=== PATIENT | female | born 1955 | race Caucasian/White ===

== ENCOUNTER 2018-09-28 12:13 | Inpatient (IN) ==
[2018-09-28] MEDS ORDERED: Isovue-370 500 ML BOTTLE IVP ONE (12:44)
--- NOTE | 2018-09-28 12:45 | Emergency Department Note ---
Disposition Clinical Impression: Cellulitis of right lower extremity, STEPHANIA (acute kidney injury) Vomiting Qualifiers: Vomiting type: unspecified Vomiting Intractability: unspecified Nausea presence: with nausea Qualified Code(s): R11.2 - Nausea with vomiting, unspecified Diarrhea Qualifiers: Diarrhea type: unspecified type Qualified Code(s): R19.7 - Diarrhea, unspecified Sepsis Qualifiers: Sepsis type: sepsis due to unspecified organism Qualified Code(s): A41.9 - Sepsis, unspecified organism Osteomyelitis Qualifiers: Osteomyelitis type: unspecified type Osteomyelitis location: foot Laterality: right Qualified Code(s): M86.9 - Osteomyelitis, unspecified Disposition: Admitted As Inpatient Condition: Undetermined Referrals: NONE,PCP [Primary Care Provider] - Forms: ED Satisfaction Letter Time of Disposition: 17:07 General Adult HPI - General Chief complaint: ED Nausea/Vomiting/Diarrhea Stated complaint: vomiting Time Seen by Provider: 09/28/18 12:19 Source: family Limitations: no limitations - History of Present Illness HPI Narrative: 63 year old female with a past medical history of diabetes mellitus who presents with nausea, vomiting, and diarrhea that began last night. Patient states that she has was feeling well yesterday and then developed symptoms when she went to bed. She denies hematemesis and bloody stools. Patient also presents with increased erythema and warmth to the right lower extremity extending from the medial calf into the medial thigh. She reports a history of cellulitis in the past and is unsure of when this current erythema began to get worse. Patient denies recent antibiotics for treatment of a cellulitis. Per son at bedside, she is very sedentary at home. He states that her blood sugar just prior to arrival was 242. No known fever at home. Pain Scale: 0 - Related Data Home Medications Medication Instructions Recorded Confirmed Carvedilol [Coreg] 6.25 mg PO BIDWM 09/28/18 09/28/18 FLUoxetine HCl [Fluoxetine HCl] 10 mg PO DAILY 09/28/18 09/28/18 Insulin ASPART [NovoLOG] 40 units SQ TID 09/28/18 09/28/18 Insulin Glargine [Lantus] 55 unit SQ BID 09/28/18 09/28/18 Quinapril HCl 40 mg PO DAILY 09/28/18 09/28/18 Simvastatin [Zocor] 20 mg PO DAILY 09/28/18 09/28/18 metFORMIN [Glucophage] 1,000 mg PO BIDWM 09/28/18 09/28/18 Allergies Allergy/AdvReac Type Severity Reaction Status Date / Time codeine AdvReac Hives Verified 09/28/18 12:17 All systems ED: reviewed and negative except as stated. Review of Systems: As Per HPI Constitutional: Reports: chills. Denies: fever Cardiovascular: Denies: chest pain, palpitations Respiratory: Denies: cough, dyspnea Gastrointestinal: Reports: nausea, vomiting, diarrhea. Denies: abdominal pain Genitourinary: Denies: dysuria, hematuria Integumentary: Reports: other (cellulitis) Neurological: Denies: headache, weakness, numbness Past Medical History - Past Medical History Attestation: Yes The following information was validated with the patient. Source: patient Medical history: Reports: diabetes, hyperlipidemia, hypertension Psychiatric history: Reports: no psych history - Social History Smoking Status: Never smoker Smokeless Tobacco Status: No Alcohol use: Reports: none Drug use: Reports: none Physical Exam - General Limitations: no limitations General appearance: anxious - Head Head exam: atraumatic, normocephalic - Eye Eye exam: Present: normal appearance, EOMI - ENT ENT exam: mucous membranes moist - Neck Neck exam: Present: normal inspection, trachea midline - Chest Chest inspection: Present: normal inspection, symmetric chest wall rise - Respiratory Respiratory exam: Present: normal lung sounds bilaterally. Absent: respiratory distress, wheezes - Cardiovascular Cardiovascular exam: Present: regular rate, normal rhythm, normal heart sounds - Abdominal Exam Abdominal exam: Present: soft, Non-Tender. Absent: distention - Extremities Exam Extremities exam: Present: other (Patient has significant right lower extremity swelling with blanching erythema of the smith extending to the right medial leg up into the right medial thigh. She has bilateral chronic venous stasis changes. Her right second toe in the inferior portion has a necrotic appearing area with erythema of the entire toe) - Neurological Exam Neurological exam: Present: alert, oriented X3 - Psychiatric Psychiatric exam: Present: normal affect, normal mood, flat affect - Skin Skin exam: Present: warm, dry Course Vital Signs Temperature 99.5 F 09/28/18 12:14 Pulse Rate 89 09/28/18 12:14 Respiratory Rate 20 09/28/18 12:14 Blood Pressure 153/84 09/28/18 12:14 O2 Sat by Pulse Oximetry 94 09/28/18 12:14 Temperature 101.9 F H 09/28/18 15:54 Pulse Rate 85 09/28/18 15:54 Respiratory Rate 20 09/28/18 15:54 Blood Pressure 159/70 09/28/18 15:54 O2 Sat by Pulse Oximetry 93 09/28/18 15:54 Oxygen Delivery Oxygen Delivery Room Air Medical Decision Making - MDM Narrative Medical decision making narrative: Patient is afebrile, vitals within normal limits. She does have significant right lower extremity swelling. She also has chronic venous stasis changes bilaterally. Right lower extremity also has blanching erythema to the right smith extending to the right medial smith extending up to the right medial thigh. She also has an area to the inferior portion of the second digit that appears to be erythematous and slight area of necrosis with erythema of the entire second digit. There is a concern for cellulitis and infection. We will obtain CT with IV contrast of the right foot. We will obtain ultrasound of the right lower extremity to rule out DVT. She will also obtain CBC, BMP, lactate, blood cultures as well. 13:00 Patient has an elevated temperature so we will give a liter of IV fluids and Tylenol. Patient meets SIRS with fever and leukocytosis at this time. We will give her 2 L. The patient is significantly obese and 30 mL/kg bolus is 4 L of fluids. Do not want to fluid overload the patient. Source of infection is cellulitis. She also has vomiting and diarrhea and likely has a viral gastroenteritis as well. We will start IV vancomycin and Zosyn which have been ordered. 13:40 Preliminary right lower extremity Doppler ultrasound is negative for DVT per US tech. 16:45 CT results reviewed shows questionable erosion at the 2nd distal phalanx with osteomyelitis not excluded. Recommending MRI. Podiatry paged. Patient also has cellulitis, no fluid collection or deep soft tissue ulceration identified. 17:00 Discussed with Podiatry, Dr. Morfin, consult placed. Hospitalist paged for admission. 17:[address] Dow who accepts admission. - Medical Records Medical records reviewed: Yes I reviewed the patient's medical records. - Lab Data Lab results reviewed: Yes I reviewed the patient's lab results. Result diagrams: 09/28/18 12:45 09/28/18 12:45 Lab Results 09/28/18 09/28/18 09/28/18 Range/Units 12:45 12:45 12:45 WBC 13.8 H (4.3-11.1) K/mcL RBC 3.90 (3.82-4.97) M/mcL Hgb 13.1 (11.5-15.4) g/dL Hct 39.2 (35.3-44.9) % MCV 100.5 H (83.0-100.0) fL MCH 33.6 H (28.0-33.3) pg MCHC 33.4 (31.6-35.5) g/dL RDW 12.9 (11.5-14.5) % Plt Count 230 (140-400) K/mcL MPV 10.9 (9.4-12.4) fL Immature Gran % 1.2 (0-4) % Seg Neutrophils % 84.7 % Lymphocytes % 10.3 % Monocytes % 3.3 % Eosinophils % 0.3 % Basophils % 0.2 % Neutrophils # 11.7 H (1.6-8.9) K/mcL Lymphocytes # 1.4 (0.6-4.6) K/mcL Monocytes # 0.5 (0.0-1.3) K/mcL Eosinophils # 0.0 (0.0-0.6) K/mcL Basophils # 0.0 (0.0-0.2) K/mcL Sodium 137 (136-145) mEq/L Potassium 4.4 (3.5-5.1) mEq/L Chloride 106 (98-107) mEq/L Carbon Dioxide 20 L (23-29) mEq/L BUN 24 H (8-23) mg/dL Creatinine 1.41 H (0.60-1.20) mg/dL Est GFR ( Amer) 46 L (> 60) Est GFR (Non-Af Amer) 38 L (> 60) BUN/Creatinine Ratio 17 (6-26) Glucose 269 H (70-105) mg/dL Calculated Osmolality 298 (280-300) Lactic Acid 2.1 (0.5-2.2) mmol/L Calcium 9.2 (8.6-10.3) mg/dL Total Bilirubin 0.5 (0.3-1.0) mg/dL Direct Bilirubin 0.1 (0.0-0.2) mg/dL Indirect Bilirubin 0.4 (0.0-1.2) mg/dL AST 10 L (13-39) Units/L ALT 12 (7-52) Units/L Alkaline Phosphatase 98 (34-104) Units/L Serum Total Protein 7.0 (6.4-8.9) g/dL Albumin 3.8 (3.5-5.7) g/dL Globulin 3.2 (2.4-3.5) g/dL Albumin/Globulin Ratio 1.2 (1.1-2.2) Lipase 9 L (11-82) Units/L - Radiology Data Radiology results reviewed: Yes I reviewed the patient's radiology results. Foot CT 09/28/18 13:22 IMPRESSION: 1. Questionable erosion at the tip of the 2nd distal phalanx with osteomyelitis not excluded. If clinically indicated further evaluation could be obtained with MRI. 2. Diffuse subcutaneous edema compatible with cellulitis versus sterile edema. No drainable fluid collection or deep soft tissue ulceration identified. D/ / Tyrel Deluca MD / Tyrel Deluca MD Interpreting Provider: Tyrel Deluca MD - EKG Data EKG #1 EKG attestation: Yes I reviewed and interpreted this EKG. EKG results narrative: EKG obtained at 1238 shows sinus rhythm with heart rate 86, NV interval 175, QRS holiness 126, QTc 4:30, much artifact, no ST elevation, no ST depression. Attestation Statement - Attestation Attestation: Patient was seen with resident physician. I reviewed the history, physical, assessment and plan, and agree with the findings. I also personally evaluated this patient and had [id number] time with this patient. 63-year-old female presents to the emergency department with chief complaint of nausea and vomiting and increased pain and swelling of the right lower extremity. Patient states symptoms have been ongoing for the last week or so progressively getting worse. She has been treated intermittently with antibiotics for her cellulitis in the lower extremities bilaterally right worse than left. She denies chest pain or abdominal pain at this time. Review of systems as above remainder negative. Physical exam vital signs patient's febrile temperature 102. Blood pressure and pulse are stable. ENT is unremarkable. Heart regular rhythm and rate. Lungs clear. Abdomen is soft obese nontender. Extremities cellulitis appears to be extending from the anterior tibial area of the posterior thigh on the right lower extremity. Additionally she has her second toe with a lesion on it appears that she has had ulceration there and possible infection as well. Neurologically alert and oriented. Skin cellulitic rashes noted in the right lower extremity. No other rashes seen. Psych normal. ED course. Patient was seen and evaluated. She was started on IV antibiotics. CT scan and ultrasound the lower extremity were ordered to rule out both osteomyelitis as well as DVT. Patient will require admission for IV antibiotics. Blood cultures were also sent. DVT study was negative. CT scan revealed possible osteo-. Patient was started on an antibiotics for osteomyelitis and cellulitis. She also met sepsis criteria. She was given IV hydration. Hemodynamically she did well. We consult to podiatry on the foot. We discussed case with the hospitalist service who agreed to accept the patient for admission. Agree with resident physician assessment and plan. ED procedures. I reviewed the patient's EKG as well as the resident physician interpretation and I agree with the findings.
[2018-09-28 12:59] LABS: Basophils % 0.2 %; Eosinophils % 0.3 %; Hematocrit 39.2 % (35.3-44.9); Hemoglobin 13.1 g/dL (11.5-15.4); Immature Granulocytes % 1.2 % (0-4); Lymphocytes # 1.4 K/mcL (0.6-4.6); Lymphocytes % 10.3 %; Mean Corpuscular HGB Conc 33.4 g/dL (31.6-35.5); Mean Corpuscular Hemoglobin 33.6 pg (28.0-33.3); Mean Corpuscular Volume 100.5 fL (83.0-100.0); Mean Platelet Volume 10.9 fL (9.4-12.4); Monocytes # 0.5 K/mcL (0.0-1.3); Monocytes % 3.3 %; Neutrophils # 11.7 K/mcL (1.6-8.9); Platelet Count 230 K/mcL (140-400); Red Cell Distribution Width 12.9 % (11.5-14.5); Segmented Neutrophils % 84.7 %; White Blood Count 13.8 K/mcL (4.3-11.1)
[2018-09-28] MEDS ORDERED: 0.9 % Sodium Chloride 1,000 ML IVC ONE ×2 (13:09→13:12)
[2018-09-28] MEDS ORDERED: Acetaminophen 325 MG TABLET PO ONE ×2 (13:09→14:58)
[2018-09-28] MEDS ORDERED: Piperacillin/Tazobactam 3.375 GM in 0.9 % Sodium Chloride Mini Bag 100 ML IVPB ONE (13:12)
[2018-09-28] MEDS ORDERED: Ondansetron 4 MG/2 ML VIAL IVP ONE (13:14)
[2018-09-28 13:18] LABS: Albumin 3.8 g/dL (3.5-5.7); Albumin/Globulin Ratio 1.2 (1.1-2.2); Bilirubin,Direct 0.1 mg/dL (0.0-0.2); Bilirubin,Indirect 0.4 mg/dL (0.0-1.2); Bilirubin,Total 0.5 mg/dL (0.3-1.0); Calcium 9.2 mg/dL (8.6-10.3); Globulin 3.2 g/dL (2.4-3.5); Potassium 4.4 mEq/L (3.5-5.1)
[2018-09-28] MEDS ORDERED: Naloxone 0.4 MG/ML INJ IVP PRN (17:27)
[2018-09-28] MEDS ORDERED: Dextrose Gel 15 GM/37.5 ML TUBE PO PRN ×2 (17:31)
[2018-09-28] MEDS ORDERED: D5% in Water 1,000 ML IVC PRN (17:31)
[2018-09-28] MEDS ORDERED: *HR* Dextrose 50 % in Water (Syg) 50 ML SYRINGE IVP PRN (17:31)
--- NOTE | 2018-09-28 17:58 | Internal Med History&Physical ---
Date of Encounter: 09/28/18 Time of Encounter: 17:40 Internal Medicine - H&P: HPI Chief complaint: Nausea, vomiting, right-sided lower extremity swelling and erythema Admitted From: Emergency Dept History of present illness: Ms. De Souza is a 63 year old female patient with a history of diabetes mellitus type 2 who presented to the ER with complaints of nausea and vomiting. Her family also noted that she had developed erythema and swelling involving her right lower extremity yesterday. Patient was noted to be febrile here. She denies any significant pain in her right leg. Patient has had episodes of nausea and vomiting the ER. She received Zofran for it. She denies any chest pain or palpitations. No shortness of breath. According to the ED records, patient also had episodes of diarrhea last night. No recent antibiotic use. Past Med Surg Social Fam HX - Past Medical History Attestation: Yes The following information was validated with the patient. Source: patient Medical history: diabetes, hyperlipidemia, hypertension Psychiatric history: no psych history - Social History Smoking Status: Never smoker Smokeless Tobacco Status: No Alcohol use: none Drug use: none - Additional Family History Additional family history: Family history reviewed and found to be noncontributory at this time Internal Medicine - H&P: Meds Carvedilol [Coreg] 6.25 mg PO BIDWM 09/28/18 [History] FLUoxetine HCl [Fluoxetine HCl] 10 mg PO DAILY 09/28/18 [History] Insulin ASPART [NovoLOG] 40 units SQ TID 09/28/18 [History] Insulin Glargine [Lantus] 55 unit SQ BID 09/28/18 [History] Quinapril HCl 40 mg PO DAILY 09/28/18 [History] Simvastatin [Zocor] 20 mg PO DAILY 09/28/18 [History] metFORMIN [Glucophage] 1,000 mg PO BIDWM 09/28/18 [History] Allergy/AdvReac Type Severity Reaction Status Date / Time codeine AdvReac Hives Verified 09/28/18 12:17 All Systems PM: A 10-system review of systems was performed and is negative for pertinent findings except as documented above in the HPI. - Constitutional Constitutional: malaise, no chills, no fever(s), no night sweats - EENT Eyes: no change in vision, no discharge, no pain, no photophobia Ears: no ear discharge, no ear pain, no tinnitus Nose, mouth and throat: no dysphagia, no nasal discharge, no neck pain, no sore throat - Cardiovascular Cardiovascular ROS IM: no chest pain, no diaphoresis, no dyspnea, no lightheadedness, no palpitations, no syncope - Respiratory Respiratory: no cough, no dyspnea, no wheezing, no excessive phlegm production - Gastrointestinal Gastrointestinal: as per HPI, nausea, vomiting, no abdominal pain, no diarrhea, no hematemesis, no hematochezia, no melena - Genitourinary Genitourinary: no change in urinary stream, no dysuria, no flank pain, no hematuria - Musculoskeletal Musculoskeletal ROS IM: no numbness, no tingling - Integumentary Integumentary IM: erythema, rash, no unusual bruising - Neurological Neurological ROS: no confusion, no convulsions, no focal weakness, no numbness, no tingling, no tremor(s) - Hematologic/Lymphatic Hematologic/Lymphatic: no easy bruising - Constitutional Vitals: Temp Pulse Resp BP Pulse Ox 101.4 F H 86 22 146/76 93 09/28/18 17:40 09/28/18 17:40 09/28/18 17:40 09/28/18 17:40 09/28/18 17:40 Exam: General: Patient is alert, no acute distress, oriented x 3, morbidly obese Head: atraumatic, normocephalic, ENT: Mucous membranes moist Eye: normal appearance, PERRL, no scleral icterus, no conjunctival injection Neck: normal inspection, trachea midline, full ROM, no carotid bruits Chest: normal inspection, symmetric chest rise Respiratory: Good respiratory effort. Normal breath sounds. No wheezing or crackles. Cardiovascular: Regular rate and rhythm. s1 and s2 normal No clicks, rubs, gallops, or murmurs. No pedal edema Abdomen: Abdomen is soft, nontender. Bowel sounds are present Musculoskeletal: Spontaneously moving all extremities Skin: Erythema and swelling involving the right lower extremity. Erythema involving right second toe with a plantar ulcer measuring about 0.5 cm in diameter. Almost looks like a puncture wound. Entire T of the right second toe is swollen and erythematous. Streaking noted up into the t right leg and thigh Neuro: Alert oriented x 3 normal cranial nerves, no focal deficits Psych: Patient's affect is normal Internal Med - H&P Results - Labs CBC & Chem 7: 09/28/18 12:45 09/28/18 12:45 Labs: Short CBC 09/28/18 Range/Units 12:45 WBC 13.8 H (4.3-11.1) K/mcL Hgb 13.1 (11.5-15.4) g/dL Hct 39.2 (35.3-44.9) % Plt Count 230 (140-400) K/mcL Neutrophils # 11.7 H (1.6-8.9) K/mcL BMP 09/28/18 12:45 Sodium 137 Potassium 4.4 Chloride 106 Carbon Dioxide 20 L BUN 24 H Creatinine 1.41 H Glucose 269 H Calcium 9.2 Liver Function 09/28/18 Range/Units 12:45 Total Bilirubin 0.5 (0.3-1.0) mg/dL Direct Bilirubin 0.1 (0.0-0.2) mg/dL AST 10 L (13-39) Units/L ALT 12 (7-52) Units/L Alkaline Phosphatase 98 (34-104) Units/L Albumin 3.8 (3.5-5.7) g/dL - Impressions ITS Impressions Foot CT 09/28/18 13:22 IMPRESSION: 1. Questionable erosion at the tip of the 2nd distal phalanx with osteomyelitis not excluded. If clinically indicated further evaluation could be obtained with MRI. 2. Diffuse subcutaneous edema compatible with cellulitis versus sterile edema. No drainable fluid collection or deep soft tissue ulceration identified. D/ / Tyrel Deluca MD / Tyrel Deluca MD Interpreting Provider: Tyrel Deluca MD - Assessment and Plan (1) Sepsis Current Visit: Yes Status: Suspected Qualifiers: Sepsis type: methicillin resistant Staphylococcus aureus Qualified Code(s): A41.02 - Sepsis due to Methicillin resistant Staphylococcus aureus (2) Cellulitis of right lower extremity Current Visit: Yes Status: Acute (3) Gastroenteritis Current Visit: Yes Status: Acute (4) Diabetes mellitus Current Visit: Yes Status: Acute Qualifiers: Diabetes mellitus type: type 2 Diabetes mellitus terminal manager insulin use: with long-term use Diabetes mellitus complication status: with hyperglycemia Qualified Code(s): E11.65 - Type 2 diabetes mellitus with hyperglycemia; Z79.4 - retirement (current) use of insulin (5) STEPHANIA (acute kidney injury) Current Visit: Yes Status: Acute (6) Osteomyelitis Current Visit: Yes Status: Suspected Qualifiers: Osteomyelitis type: other Osteomyelitis location: foot Laterality: right Qualified Code(s): M86.8X7 - Other osteomyelitis, ankle and foot - Summary of Assessment and Plan Summary of Assessment and Plan: Sepsis due to cellulitis and possible osteomyelitis involving the right lower extremity: Patient was fever with temperature of 102.4, leukocytosis. Lactic acid normal. Patient has severe erythema and swelling involving the right second toe. Concerning for underlying osteomyelitis. Will obtain MRI of the right foot. CT was inconclusive. ESR and CRP are elevated. Will treat with broad-spectrum antibiotics. Podiatry has been consulted. Diabetes mellitus type 2: Monitor blood sugars. Sliding scale insulin. Diabetic diet. Keep nothing by mouth after midnight. Acute kidney injury: Creatinine 1.41. No prior baseline available here. May have underlying chronic kidney disease. Patient received IV fluids in the ER. We will hold off on further IV fluids at this time. Recheck labs in the morning. Morbid obesity with BMI of 51. Possible viral gastroenteritis: Patient had episodes of nausea vomiting and diarrhea. No recent antibiotic use. Abdomen is nontender to examination. If patient continues to have diarrhea, we will check stool for GI panel. Treat symptoms empirically in the meantime. Next High risk for complications given her underlying comorbidities and morbid obesity. DVT prophylaxis with subcutaneous heparin - Time Spent With Patient Total time spent is greater than 50% in coordination of care (as documented) at patient's floor/unit and/or counseling patient:
[2018-09-28] MEDS: Insulin LISPRO 300 UNITS/3 ML VIAL SQ SCH (22:32)
[2018-09-29 01:34] LABS: Acinetobacter baumannii by PCR Not Detected (Not Detect); Enterobacter cloacae Cmplx PCR Not Detected (Not Detect); Enterobacteriaceae by PCR Not Detected (Not Detect); Enterococcus by PCR Not Detected (Not Detect); Escherichia coli by PCR Not Detected (Not Detect); Klebsiella oxytoca by PCR Not Detected (Not Detect); Klebsiella pneumoniae by PCR Not Detected (Not Detect); Proteus by PCR Not Detected (Not Detect); Pseudomonas aeruginosa by PCR Not Detected (Not Detect); Serratia marcescens by PCR Not Detected (Not Detect); Staphylococcus aureus by PCR Not Detected (Not Detect); Staphylococcus by PCR Not Detected (Not Detect); Streptococcus agalactiae(B)PCR Not Detected (Not Detect); Streptococcus by PCR DETECTED (Not Detect); Streptococcus pneumoniae PCR Not Detected (Not Detect); Streptococcus pyogenes (A) PCR Not Detected (Not Detect)
[2018-09-29 01:35] LABS: Candida albicans by PCR Not Detected (Not Detect); Candida glabrata by PCR Not Detected (Not Detect); Candida krusei by PCR Not Detected (Not Detect); Candida parapsilosis by PCR Not Detected (Not Detect); Candida tropicalis by PCR Not Detected (Not Detect)
[2018-09-29] MEDS: Piperacillin/Tazobactam 3.375 GM in 0.9 % Sodium Chloride Mini Bag 100 ML IVPB SCH ×3 (01:54→17:32)
[2018-09-29 06:18] LABS: Basophils % 0.2 %; Eosinophils % 0.2 %; Hematocrit 34.3 % (35.3-44.9); Immature Granulocytes % 0.7 % (0-4); Lymphocytes # 1.9 K/mcL (0.6-4.6); Lymphocytes % 15.2 %; Mean Corpuscular HGB Conc 31.5 g/dL (31.6-35.5); Mean Corpuscular Volume 104.9 fL (83.0-100.0); Mean Platelet Volume 10.8 fL (9.4-12.4); Monocytes # 0.4 K/mcL (0.0-1.3); Monocytes % 3.2 %; Neutrophils # 9.8 K/mcL (1.6-8.9); Platelet Count 196 K/mcL (140-400); Red Blood Count 3.27 M/mcL (3.82-4.97); Red Cell Distribution Width 13.2 % (11.5-14.5); Segmented Neutrophils % 80.5 %; White Blood Count 12.2 K/mcL (4.3-11.1)
[2018-09-29 06:19] LABS: Hemoglobin 10.8 g/dL (11.5-15.4)
[2018-09-29 06:35] LABS: Calcium 8.5 mg/dL (8.6-10.3); Potassium 4.5 mEq/L (3.5-5.1)
[2018-09-29] MEDS: FLUoxetine HCl 10 MG CAPSULE PO SCH (07:59)
[2018-09-29] MEDS: Insulin LISPRO 300 UNITS/3 ML VIAL SQ SCH ×4 (08:01→22:10)
--- NOTE | 2018-09-29 10:17 | Podiatry Consult Note ---
Date of Encounter: 09/29/18 Time of Encounter: 10:15 Assessment and Plan (1) Osteomyelitis Current visit: Yes Status: Suspected Assessment: Right DIPJ #2 with pre-ulcerative callus CT suggestive of erosion of distal tip #2 phalanx and subcutaneous edema WBC 12.2, afebrile today, max temp 102.4 ESR 64, CRP 149 Blood culture returned gram postive cocci x 1, set pending Plan: Bedside debridement completed, see below MRI ordered of right foot to evaluate for OM Continue IV ATB as ordered, currently on vanc and zosyn Local wound care ordered If MR returns OM may consider ID consult as patient may need assisted ATB Will 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 Verbal consent obtained.Sharp surgical excisional debridement of all hyperkeratotic tissue/devitalized tissue DIPJ #2 toe right foot with #15 scalpel blade reveals ulceration measuring 0.5 cm x 0.7 cm x 0.2 cm. no undermining or tunneling noted. No abscess noted. Wound thoroughly irrigated with sterile saline. Dry sterile dressing applied with calcium alginate. Covered with gauze, kerlix, and Medipore. Dressing to be changed daily Qualifiers: Osteomyelitis type: other Osteomyelitis location: foot Laterality: right Qualified Code(s): M86.8X7 - Other osteomyelitis, ankle and foot (2) Cellulitis of right lower extremity Current visit: Yes Status: Acute Assessment: Erythema extending to posterior popliteal area Does not extend past demarcation line Currently on IV zosyn and vanc Positive blood culture x 1, one set pending Currently afebrile, max temp 102.4 Plan: Continue IV atb per primary team May consider ID consult for management History of Present Illness Chief complaint: Toe #2 possible OM, cellutlitis right foot HPI: Ms. De Souza is a 63 year old female who presented to the ER with complaints of nausea and vomiting. Patient is not noted to podiatry group. PMH of DM I, HLD, HTN. Briefly, patient reports about a month ago she began to notice her right foot toe #2 was sore. States has history of cellulitis. Reports began noticing erythema and edema to right lower extremity around that time. States as this was normal for her she began soaking her foot and attempts to improve pain. States she began to have nausea and vomiting this last week which brought her to the ER. Patient reports she has recently moved here from [facility]. States she does not have any primary care physician or label rewinder that she follows with at this time. Again Ms. De Souza is a 63-year-old female who is consulted to podiatry group for right toe #2 pre-ulcerative lesion and right lower extremity cellulitis. WBC 12.2, blood cultures returned gram-positive cocci [address] upon admission showed erosion of tip #2 right foot and subcutaneous edema. ESR 64, CRP 149, afebrile at this time, Max temp 102.4. Discussed with patient bedside debridement of right toe #2, patient agreeable at this time. Denies any fevers, chills, or diarrhea. Reports nausea and vomiting. Denies any calf pain, chest pain, or shortness of breath. Past Med Surg Social Fam HX - Past Medical History Medical history: diabetes, hyperlipidemia, hypertension Psychiatric history: no psych history - Past Surgical History Surgical History: cholecystectomy - Social History Smoking Status: Never smoker Smokeless Tobacco Status: No Alcohol use: none Drug use: none Medications and Allergies Carvedilol [Coreg] 6.25 mg PO BIDWM 09/28/18 [History] FLUoxetine HCl [Fluoxetine HCl] 10 mg PO DAILY 09/28/18 [History] Insulin ASPART [NovoLOG] 40 units SQ TID 09/28/18 [History] Insulin Glargine [Lantus] 55 unit SQ BID 09/28/18 [History] Quinapril HCl 40 mg PO DAILY 09/28/18 [History] Simvastatin [Zocor] 20 mg PO DAILY 09/28/18 [History] metFORMIN [Glucophage] 1,000 mg PO BIDWM 09/28/18 [History] Allergy/AdvReac Type Severity Reaction Status Date / Time codeine AdvReac Hives Verified 09/28/18 12:17 All Systems Reviewed: The remainder of the systems were reviewed and are negative - Constitutional Constitutional: fever(s) - Cardiovascular Cardiovascular: leg edema, pedal edema, no chest pain, no dyspnea - Respiratory Respiratory: no cough, no dyspnea - Musculoskeletal Musculoskeletal: numbness, tingling Physical Exam - Constitutional Vitals: Temp Pulse Resp BP Pulse Ox 99.1 F 72 18 124/69 91 09/29/18 07:30 09/29/18 07:30 09/29/18 07:30 09/29/18 07:30 09/29/18 07:30 Exam: Constitiutional: Alert and oriented x 3. Well nourished. No acute distress noted Vascular: 1/4 DP/PT bilaterally, CFT <3 sec to all digits, warm to warm from tibia to toes RLE, no calf pain with squeeze RLE Neurologic: Diminished sensation to touch, normal plantar response, Dermatologic: Pre-ulcerative callus noted to right DIPJ #2, erythema and edema noted to RLE, peeling of tissue noted right phalanx #2, Musculoskeletal: 3/5 muscle strength and normal tone RLE Results - Labs Result Diagrams: 09/29/18 06:02 09/29/18 06:02 Labs: Abnormal lab results WBC 12.2 K/mcL (4.3-11.1) H 09/29/18 06:02 RBC 3.27 M/mcL (3.82-4.97) L 09/29/18 06:02 Hgb 10.8 g/dL (11.5-15.4) L D 09/29/18 06:02 Hct 34.3 % (35.3-44.9) L 09/29/18 06:02 MCV 104.9 fL (83.0-100.0) H 09/29/18 06:02 MCH 33.6 pg (28.0-33.3) H 09/28/18 12:45 MCHC 31.5 g/dL (31.6-35.5) L 09/29/18 06:02 Neutrophils # 9.8 K/mcL (1.6-8.9) H 09/29/18 06:02 ESR 64 mm/hr (0-15) H 09/28/18 17:32 Chloride 108 mEq/L (98-107) H 09/29/18 06:02 Carbon Dioxide 22 mEq/L (23-29) L 09/29/18 06:02 BUN 32 mg/dL (8-23) H 09/29/18 06:02 Creatinine 1.67 mg/dL (0.60-1.20) H 09/29/18 06:02 Est GFR ( Amer) 38 (> 60) L 09/29/18 06:02 Est GFR (Non-Af Amer) 31 (> 60) L 09/29/18 06:02 Glucose 251 mg/dL (70-105) H 09/29/18 06:02 POC Glucose 260 mg/dL (70-99) H 09/28/18 21:04 Calculated Osmolality 301 (280-300) H 09/29/18 06:02 Calcium 8.5 mg/dL (8.6-10.3) L 09/29/18 06:02 AST 10 Units/L (13-39) L 09/28/18 12:45 C-Reactive Protein 149 mg/L (Less than 10) H 09/28/18 17:32 Lipase 9 Units/L (11-82) L 09/28/18 12:45 Streptococcus sp PCR DETECTED (Not Detect) A 09/28/18 13:25 H & H 09/28/18 09/29/18 Range/Units 12:45 06:02 Hgb 13.1 10.8 L D (11.5-15.4) g/dL Hct 39.2 34.3 L (35.3-44.9) % All other labs normal. - Diagnostic results Ankle/Foot CT: report reviewed Consult Discharge Plan - Plan Referrals: NONE,PCP [Primary Care Provider] -
[2018-09-29 10:40] LABS: Estimated Average Glucose 232 mg/dl
[2018-09-29] MEDS: Ringers Solution, Lactated 1,000 ML IVC SCH (12:13)
--- NOTE | 2018-09-29 16:44 | Internal Med Progress Note ---
Hospitalist Progress Note - Encounter Date of Encounter: 09/29/18 Time of Encounter: 16:43 - Subjective Interval History: Evaluated patient earlier today. She was sitting up in chair. She reports that her right lower extremity pain and was better controlled today. She denied anynew complaints. Was evaluated by podiatry earlier today. She is concerned about an MRI that was ordered. Addressed her concerns. - Exam Vitals: Temp Pulse Resp BP Pulse Ox 98.2 F 68 18 122/65 95 09/29/18 16:18 09/29/18 16:18 09/29/18 16:18 09/29/18 16:18 09/29/18 16:18 Exam: General: Patient is alert, no acute distress, oriented x 3, morbidly obese Respiratory: Good respiratory effort. Normal breath sounds. No wheezing or crackles. Cardiovascular: Regular rate and rhythm. s1 and s2 normal No clicks, rubs, gallops, or murmurs. No pedal edema Abdomen: Abdomen is soft, nontender. Bowel sounds are present Musculoskeletal: Spontaneously moving all extremities Skin: right foot bandaged. Erythema over the right lower extremity is improving. Neuro: Alert oriented x 3 normal cranial nerves, no focal deficits Psych: Patient's affect is normal - Assessment and Plan (1) Sepsis Current Visit: Yes Status: Suspected (2) Cellulitis of right lower extremity Current Visit: Yes Status: Acute (3) Gastroenteritis Current Visit: Yes Status: Acute (4) Diabetes mellitus Current Visit: Yes Status: Acute (5) STEPHANIA (acute kidney injury) Current Visit: Yes Status: Acute (6) Osteomyelitis Current Visit: Yes Status: Suspected DVT Prophylaxis: Placed patient on subcutaneous heparin - Summary of Assessment and Plan Summary of Assessment and Plan: Sepsis due to cellulitis and possible osteomyelitis involving the right lower extremity: Fevers have improved. Continue IV antibiotics. Blood cultures growing possible streptococci. Once organisms finalized, we will consult infectious disease for further antibiotic recommendations. Podiatry consulted. MRI pending. Keep nothing by mouth after midnight for possible surgery. ESR and CRP a severely elevated suggesting possible underlying osteomyelitis. Diabetes mellitus type 2: Blood sugars are elevated today. We will add long- acting insulin. Acute kidney injury: Creatinine continues to rise up. Check urinalysis. Continue IV fluids. Retroperitoneal ultrasound completed. No abnormalities identified. Morbid obesity with BMI of 56 Acute gastroenteritis: Now resolved. Denies any nausea or vomiting today. High risk for complications given her underlying comorbidities and morbid obesity. DVT prophylaxis with subcutaneous heparin - Time Spent with Patient Total time spent is greater than 50% in coordination of care (as documented) at patient's floor/unit and/or counseling patient: Internal Medicine: Result - Labs CBC & Chem 7: 09/29/18 06:02 09/29/18 06:02 Labs: Short CBC 09/29/18 Range/Units 06:02 WBC 12.2 H (4.3-11.1) K/mcL Hgb 10.8 L D (11.5-15.4) g/dL Hct 34.3 L (35.3-44.9) % Plt Count 196 (140-400) K/mcL Neutrophils # 9.8 H (1.6-8.9) K/mcL BMP 09/29/18 06:02 Sodium 138 Potassium 4.5 Chloride 108 H Carbon Dioxide 22 L BUN 32 H Creatinine 1.67 H Glucose 251 H Calcium 8.5 L - Impressions Impressions Retroperitoneum Ultrasound 09/29/18 14:00 IMPRESSION: Unremarkable ultrasound of the kidneys. 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
[2018-09-29 17:20] LABS: Bilirubin,Urine Small (Negative); Blood,Urine Small (Negative); Clarity,Urine Turbid (Clear); Color,Urine Yellow (Yellow); Glucose,Urine (UA) 250 mg/dL (Normal); Ketones,Urine Negative (Negative); Leukocyte Esterase,Urine Small (Negative); Nitrite,Urine Negative (Negative); PH,Urine 5.5 pH Units (5.0-8.0); Protein,Urine >=1000 mg/dL (Neg-Trace); Specific Gravity,Urine 1.029 (1.010-1.025); Urobilinogen,Urine Normal (Normal)
[2018-09-29 17:21] LABS: Hyaline Casts,Urine None Seen per lpf (None-Few); Squamous Epithelial Cell,Urine Many per lpf (None-Few); WBC,Urine TNTC per hpf (0-3)
[2018-09-29 17:44] LABS: Bacteria,Urine Moderate per hpf (None-Few)
[2018-09-29 19:10] LABS: Protein/Creatinine Ratio,Urine 3.73 mg/mg (0.00-0.20); Sodium, Urine 13.2 mEq/L
[2018-09-29] MEDS: *HR* Heparin 5,000 UNIT/ML VIAL SQ SCH (22:10)
[2018-09-30] MEDS: Piperacillin/Tazobactam 3.375 GM in 0.9 % Sodium Chloride Mini Bag 100 ML IVPB SCH ×4 (00:26→23:43)
[2018-09-30] MEDS: Ringers Solution, Lactated 1,000 ML IVC SCH ×2 (00:26→08:11)
[2018-09-30 05:54] LABS: Basophils % 0.3 %; Eosinophils # 0.3 K/mcL (0.0-0.6); Eosinophils % 2.9 %; Hematocrit 31.1 % (35.3-44.9); Hemoglobin 9.9 g/dL (11.5-15.4); Immature Granulocytes % 0.4 % (0-4); Lymphocytes # 2.4 K/mcL (0.6-4.6); Mean Corpuscular HGB Conc 31.8 g/dL (31.6-35.5); Mean Corpuscular Volume 103.7 fL (83.0-100.0); Mean Platelet Volume 10.9 fL (9.4-12.4); Monocytes # 0.6 K/mcL (0.0-1.3); Monocytes % 5.7 %; Neutrophils # 6.6 K/mcL (1.6-8.9); Platelet Count 168 K/mcL (140-400); Red Cell Distribution Width 13.1 % (11.5-14.5); Segmented Neutrophils % 66.7 %; White Blood Count 9.8 K/mcL (4.3-11.1)
[2018-09-30 06:15] LABS: Calcium 8.5 mg/dL (8.6-10.3); Potassium 4.4 mEq/L (3.5-5.1)
[2018-09-30] MEDS: Insulin LISPRO 300 UNITS/3 ML VIAL SQ SCH ×5 (08:07→21:56)
[2018-09-30] MEDS: FLUoxetine HCl 10 MG CAPSULE PO SCH (08:10)
[2018-09-30] MEDS: *HR* Heparin 5,000 UNIT/ML VIAL SQ SCH ×2 (08:10→17:37)
--- NOTE | 2018-09-30 09:44 | Nephrology Consult Note ---
Date of Encounter: 09/30/18 Time of Encounter: 09:00 Assessment and Plan (1) STEPHANIA (acute kidney injury) Current Visit: Yes Status: Acute Unknown baseline kidney function STEPHANIA possibly on CKD as unsure abotu patients baseline as she has not had bloodwork done for over 4 years. Patient had 2 day history of N/V/D and poor oral intake Is on NATASHA inhibitor as well as metformin Patient's STEPHANIA likely secondary to dehydration and sepsis We will do workup for glomerulonephritis including MONTY, ANCA, Complements C3 and C4, Rheumatoid factor, and Protein electrophoresis Hold any diuretics unless needed for pulmonary function Continue renally protective strategies, avoid nephrotoxic agents, and renally dose medications as appropriate (2) Cellulitis of right lower extremity Current Visit: Yes Status: Acute (3) Gastroenteritis Current Visit: Yes Status: Acute (4) Diabetes mellitus Current Visit: Yes Status: Acute Qualifiers: Diabetes mellitus type: type 2 Diabetes mellitus longterm insulin use: with 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 Diabetes mellitus complication status: with hyperglycemia Qualified Code(s): E11.65 - Type 2 diabetes mellitus with hyperglycemia; Z79.4 - 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 De Souza is a 63 year ld female with PMHx of DM, HTN. She presented to the ED with Complaints of N/V/D that had started approxamately 2 days before she come to the ED. She also had noted increased redness and swelling in her right lower extremity. Kimberley denies any history of CKD, however she has not seen a PCP for 4 years and has not received blood work over that time frame. She states she does take carvedalol, simvastatin, quinapril, fluoxitine, insulin (Novalog and Lantus) as well as metformin. No recent exposure to IV contrast She denies any family history of CKD She will occationally take an ibprophen or two but she says this is rare and only when she gets a headache that she cannot control without medications Patient denies any further nausea, vomiting, diarrhea, abdominal pain, chest pain, shortness of of breath Todays labs show WBC 9.8, HGb 9.9, Hct 31.1, Plt 168, Na 138, K 4.4, Cl 106, BUN 37 increased from 32, Cr 1.78 increased from 1.67, GFR 29 decreased from 31, urine osm 589, Urine Cr 168, Protein/Creatinine ratio 3.73, Urine sodium 13.2, Urine Protein 626 Patient is currently on pipercillin tazobactam and Vancomycin for cellulitis/possible osteomylitis. The right kidney measures 11.8 cm in length and the left kidney measures 12.3 cm in length. Retrperitoneal U/S showed: Kidneys demonstrate normal cortical echogenicity. No evidence of hydronephrosis or intrarenal stones. Kimberley was seen and examined at bedside today, she was n a good mood and said she is feeling much better than what she did previously. She states she has noticed some increased hand swelling and leg swelling over the last few days . Past Med Surg Social Fam HX - Past Medical History Medical history: diabetes, hyperlipidemia, hypertension Psychiatric history: no psych history - Past Surgical History Surgical History: cholecystectomy - Social History Smoking Status: Never smoker Smokeless Tobacco Status: No Alcohol use: none Drug use: none Medications and Allergies Carvedilol [Coreg] 6.25 mg PO BID 09/28/18 [History] FLUoxetine HCl [Fluoxetine HCl] 10 mg PO QAM 09/28/18 [History] Quinapril HCl 40 mg PO DAILY 09/28/18 [History] Simvastatin [Zocor] 20 mg PO HS 09/28/18 [History] Insulin ASPART [Novolog Flexpen] 12 - 16 unit SQ TIDAC 09/29/18 [History] Insulin Glargine,Hum.rec.anlog [Lantus Solostar] 40 unit SQ HS 09/29/18 [History] Insulin Glargine,Hum.rec.anlog [Lantus Solostar] 55 unit SQ QAM 09/29/18 [History] Metformin HCl [Glucophage] 1,000 mg PO BID 09/29/18 [History] Allergy/AdvReac Type Severity Reaction Status Date / Time codeine AdvReac Hives Verified 09/29/18 21:15 Review of Systems Constitutional: no chills, no fatigue, no fever(s) Cardiovascular: edema (increased in hands and legs), no chest pain, no dyspnea Respiratory: no cough, no wheezing Gastrointestinal: as per HPI Genitourinary Female: no urinary frequency, no urinary hesitancy, no urinary urgency Exam - Vital Signs Vital signs: Initial Vital Signs Temp Pulse Resp BP Pulse Ox 99.5 F 89 20 153/84 94 09/28/18 12:14 09/28/18 12:14 09/28/18 12:14 09/28/18 12:14 09/28/18 12:14 Vital Signs - Last 8 Hours Temp Pulse Resp BP Pulse Ox 09/30/18 07:26 97.8 F 62 16 146/74 95 09/30/18 04:25 97.8 F 70 16 150/83 94 Intake and Output 09/29/18 09/30/18 09/30/18 23:59 07:59 15:59 Intake Total 500 / 940 1100 / 2460 1360 / 2460 Output Total 200 / 650 450 / 650 Balance 500 / 740 900 / 1810 910 / 1810 Intake: IV Fluids 100 / 300 1100 / 2100 1000 / 2100 Lactated Ringers 1,000 ML @ 75 1000 / 2000 1000 / 2000 mls/hr IVC .[id number] [facility]ING[facility] Rx#: [id number] Zosyn 3.375 GM In 0.9 % Sodium 100 / 300 100 / 100 Chloride (Mini-Bag +) 100 ML @ 25 mls/hr IVPB Q8HR [facility]ING[facility] Rx#: [id number] Oral 400 / 640 360 / 360 Output: Urine 200 / 650 450 / 650 Other: Meal Breakfast Percent of Meal Consumed 100% Weight 149 kg Blood Glucose* 201 200 Patient Weight 09/30/18 23:59 Weight 149 kg - General Appearance General appearance: well-developed, well-nourished, appears started age, obese Neck: no JVD, supple Respiratory: clear Cardiology: no murmurs, no rub, no gallops, edema (2+ to knee left leg, 3+ to kn ee right leg, edema bilateral hands) Gastrointestinal: normoactive bowel sounds, no tenderness, no guarding Integumentary: no rash, warm and dry Results - Lab Results 09/30/18 05:35 09/30/18 05:35 Most recent lab results 09/30/18 05:35 Calcium 8.5 L Consult Discharge Plan - Plan Referrals: NONE,PCP [Primary Care Provider] -
--- NOTE | 2018-09-30 12:05 | Podiatry Progress Note ---
Date of Encounter: 09/30/18 Time of Encounter: 12:00 - Assessment and Plan (1) Osteomyelitis Current Visit: Yes Status: Suspected Assessment: Right DIPJ toe #2 with ulceration, limited to skin breakdown CT suggestive of erosion of distal tip #2 phalanx and subcutaneous edema WBC 9.8, improved from yesterday, afebrile today, max temp 102.4 ESR 64, CRP 149, A1C 9.4 Blood culture returned gram postive cocci x 1, set pending No purulent drainage noted, no streaking, no foul odor Minimal erythema noted to digit #2 with flaking skin Plan: MRI ordered of right foot to evaluate for OM, pending ID consulted- appreciate recommendations Local wound care ordered Wound appears stable, does not appear infectious in nature, if no other source of infection may consider surgical intervention Cleansed right toe #2 with 0.9 NS, painted surrounding tissue with betadine, covered ulceration with calcium alginate, 4x4 dry dressing, and kerlix. Secured with medipore tape Qualifiers: Osteomyelitis type: other Osteomyelitis location: foot Laterality: right Qualified Code(s): M86.8X7 - Other osteomyelitis, ankle and foot (2) Cellulitis of right lower extremity Current Visit: Yes Status: Acute Assessment: Erythema extending to posterior popliteal area Does not extend past demarcation line Currently on IV zosyn and vanc Positive blood culture x 1, one set pending Currently afebrile, max temp 102.4 Plan: Continue IV atb per ID recommendations Objective - Vital Signs Vital Signs: Vital Signs Temp Pulse Resp BP Pulse Ox 09/30/18 11:20 97.6 F 100 16 153/96 90 09/30/18 07:26 97.8 F 62 16 146/74 95 09/30/18 04:25 97.8 F 70 16 150/83 94 09/30/18 00:00 97.4 F L 68 17 156/90 93 09/29/18 19:25 98 F 64 16 113/76 96 09/29/18 16:18 98.2 F 68 18 122/65 95 Intake and Output 09/29/18 09/30/18 09/30/18 23:59 07:59 15:59 Intake Total 500 / 940 1100 / 2460 1360 / 2460 Output Total 200 / 650 450 / 650 Balance 500 / 740 900 / 1810 910 / 1810 Intake: IV Fluids 100 / 300 1100 / 2100 1000 / 2100 Lactated Ringers 1,000 ML @ 75 1000 / 2000 1000 / 2000 mls/hr IVC .[id number] [facility]ING[facility] Rx#: [id number] Zosyn 3.375 GM In 0.9 % Sodium 100 / 300 100 / 100 Chloride (Mini-Bag +) 100 ML @ 25 mls/hr IVPB Q8HR [facility]ING[facility] Rx#: [id number] Oral 400 / 640 360 / 360 Output: Urine 200 / 650 450 / 650 Other: Meal Breakfast Percent of Meal Consumed 100% Weight 149 kg Blood Glucose* 201 200 247 Patient Weight 09/30/18 23:59 Weight 149 kg - Exam Exam: Constitiutional: Alert and oriented x 3. Well nourished. No acute distress noted Vascular: 1/4 DP/PT bilaterally, CFT <3 sec to all digits, warm to warm from tibia to toes RLE, no calf pain with squeeze RLE Neurologic: Diminished sensation to touch, normal plantar response, Dermatologic: Alarcon II ulcer noted to right digit #2, wound bed beefy red, erythema and edema noted to RLE, peeling of tissue noted right phalanx #2, Musculoskeletal: 3/5 muscle strength and normal tone RLE - Lab Result Diagrams: 09/30/18 05:35 09/30/18 05:35 Labs: Abnormal lab results WBC 12.2 K/mcL (4.3-11.1) H 09/29/18 06:02 RBC 3.00 M/mcL (3.82-4.97) L 09/30/18 05:35 Hgb 9.9 g/dL (11.5-15.4) L 09/30/18 05:35 Hct 31.1 % (35.3-44.9) L 09/30/18 05:35 MCV 103.7 fL (83.0-100.0) H 09/30/18 05:35 MCH 33.6 pg (28.0-33.3) H 09/28/18 12:45 MCHC 31.5 g/dL (31.6-35.5) L 09/29/18 06:02 Neutrophils # 9.8 K/mcL (1.6-8.9) H 09/29/18 06:02 ESR 64 mm/hr (0-15) H 09/28/18 17:32 Chloride 108 mEq/L (98-107) H 09/29/18 06:02 Carbon Dioxide 21 mEq/L (23-29) L 09/30/18 05:35 BUN 37 mg/dL (8-23) H 09/30/18 05:35 Creatinine 1.78 mg/dL (0.60-1.20) H 09/30/18 05:35 Est GFR ( Amer) 35 (> 60) L 09/30/18 05:35 Est GFR (Non-Af Amer) 29 (> 60) L 09/30/18 05:35 Glucose 215 mg/dL (70-105) H 09/30/18 05:35 POC Glucose 201 mg/dL (70-99) H 09/29/18 19:28 Hemoglobin A1c 9.7 % (-5.6) H 09/28/18 17:32 Calculated Osmolality 301 (280-300) H 09/30/18 05:35 Calcium 8.5 mg/dL (8.6-10.3) L 09/30/18 05:35 AST 10 Units/L (13-39) L 09/28/18 12:45 C-Reactive Protein 149 mg/L (Less than 10) H 09/28/18 17:32 Lipase 9 Units/L (11-82) L 09/28/18 12:45 Urine Clarity Turbid (Clear) A 09/29/18 17:00 Ur Specific [place] 1.029 (1.010-1.025) H 09/29/18 17:00 Urine Protein >=1000 mg/dL (Neg-Trace) H 09/29/18 17:00 Urine Glucose (UA) 250 mg/dL (Normal) H 09/29/18 17:00 Urine Blood Small (Negative) H 09/29/18 17:00 Urine Bilirubin Small (Negative) H 09/29/18 17:00 Ur Leukocyte Esterase Small (Negative) H 09/29/18 17:00 Urine Microscopic RBC 5-15 per hpf (0-3) H 09/29/18 17:00 Urine Microscopic WBC TNTC per hpf (0-3) H 09/29/18 17:00 Ur Squamous Epith Cells Many per lpf (None-Few) H 09/29/18 17:00 Urine Bacteria Moderate per hpf (None-Few) H 09/29/18 17:00 Ur Culture Indicated? YES (NO) A 09/29/18 17:00 Protein/Creatinin Ratio 3.73 mg/mg (0.00-0.20) H 09/29/18 18:35 Urine Total Protein 626 mg/dL (1-14) H 09/29/18 18:35 Rheumatoid Factor 23 IU/mL (Less than 14) H 09/30/18 11:00 Streptococcus sp PCR DETECTED (Not Detect) A 09/28/18 13:25 Microbiology, Last 48 Hours 09/28/18 13:25 Blood Culture - Preliminary Peripheral Venipuncture Gram Positive Cocci 09/29/18 17:00 Urine Culture - Preliminary Urine,Clean Catch Culture is incubating. 09/28/18 17:32 Blood Culture - Preliminary Peripheral Venipuncture Culture is incubating and being continuously monitored for growth. Final report to follow. Consult Discharge Plan - Plan Referrals: NONE,PCP [Primary Care Provider] -
[2018-09-30 12:06] LABS: Complement C3 204 mg/dL (87-200)
--- NOTE | 2018-09-30 15:29 | Internal Med Progress Note ---
Hospitalist Progress Note - Encounter Date of Encounter: 09/30/18 Time of Encounter: 15:21 - Subjective Interval History: Patient sitting up in chair. Doing well overall. Feels that she is getting better. Tolerating diet well. No nausea or vomiting. Continues to have erythema and swelling in her right foot over the second toe. Erythema over most of her right lower leg improved. - Exam Vitals: Temp Pulse Resp BP Pulse Ox 97.6 F 100 16 153/96 90 09/30/18 11:20 09/30/18 11:20 09/30/18 11:20 09/30/18 11:20 09/30/18 11:20 Exam: General: Patient is alert, no acute distress, oriented x 3, morbidly obese Respiratory: Good respiratory effort. Normal breath sounds. No wheezing or crackles. Cardiovascular: Regular rate and rhythm. s1 and s2 normal No clicks, rubs, gallops, or murmurs. No pedal edema Abdomen: Abdomen is soft, nontender. Bowel sounds are present Musculoskeletal: Spontaneously moving all extremities Skin: right foot bandaged. Erythema over the right lower extremity is improving. Neuro: Alert oriented x 3 normal cranial nerves, no focal deficits Psych: Patient's affect is normal - Assessment and Plan (1) Sepsis Current Visit: Yes Status: Suspected (2) Cellulitis of right lower extremity Current Visit: Yes Status: Acute (3) Gastroenteritis Current Visit: Yes Status: Acute (4) Diabetes mellitus Current Visit: Yes Status: Acute (5) STEPAHNIA (acute kidney injury) Current Visit: Yes Status: Acute (6) Osteomyelitis Current Visit: Yes Status: Suspected DVT Prophylaxis: Placed patient on subcutaneous heparin - Summary of Assessment and Plan Summary of Assessment and Plan: Sepsis due to cellulitis and possible osteomyelitis involving the right lower extremity: Fevers have improved. Continue IV antibiotics. Blood cultures growing possible streptococci. MRI still pending. Podiatry following. Consult infectious disease tomorrow once cultures finalize. Diabetes mellitus type 2: Blood sugars are elevated today. Levemir ordered. Increase sliding scale coverage to high correctional. Acute kidney injury: Consult with nephrology. Creatinine continues to worsen. Continue gentle IV hydration. Morbid obesity with BMI of 56 Acute gastroenteritis: Now resolved. Essential hypertension: Blood pressure has been elevated here. Continue carvedilol. Will add amlodipine. Moderate risk for complications. DVT prophylaxis with subcutaneous heparin - Time Spent with Patient Total time spent is greater than 50% in coordination of care (as documented) at patient's floor/unit and/or counseling patient: Internal Medicine: Result - Labs CBC & Chem 7: 09/30/18 05:35 09/30/18 05:35 Labs: Short CBC 09/30/18 Range/Units 05:35 WBC 9.8 (4.3-11.1) K/mcL Hgb 9.9 L (11.5-15.4) g/dL Hct 31.1 L (35.3-44.9) % Plt Count 168 (140-400) K/mcL Neutrophils # 6.6 (1.6-8.9) K/mcL BMP 09/30/18 05:35 Sodium 138 Potassium 4.4 Chloride 106 Carbon Dioxide 21 L BUN 37 H Creatinine 1.78 H Glucose 215 H Calcium 8.5 L Urine 09/29/18 Range/Units 17:00 Urine Color Yellow (Yellow) Urine Clarity Turbid A (Clear) Urine pH 5.5 (5.0-8.0) pH Units Ur Specific [place] 1.029 H (1.010-1.025) Urine Protein >=1000 H (Neg-Trace) mg/dL Urine Glucose (UA) 250 H (Normal) mg/dL Consult Discharge Plan - Plan Referrals: NONE,PCP [Primary Care Provider] - (1) Sepsis Qualifiers: Sepsis type: Streptococcus, other Qualified Code(s): A40.8 - Other streptococcal sepsis (4) Diabetes mellitus Qualifiers: Diabetes mellitus type: type 2 Diabetes mellitus group home insulin use: with group home use Diabetes mellitus complication status: with hyperglycemia Qualified Code(s): E11.65 - Type 2 diabetes mellitus with hyperglycemia; Z79.4 - intermediate (current) use of insulin (6) Osteomyelitis Qualifiers: Osteomyelitis type: other Osteomyelitis location: foot Laterality: right Qualified Code(s): M86.8X7 - Other osteomyelitis, ankle and foot
[2018-09-30] MEDS ORDERED: Insulin DETEMIR 100 UNIT/ML X5UNITS SQ SCH (21:00)
--- NOTE | 2018-09-30 23:37 | Electrocardiograph Report ---
[facility] Test Date: 2018-09-28 Pat Name: Yasmeen De Souza Department: EXAM12 Room: 2A51 Gender: F Oil [employer]: : [id number] Requested By: Jaymie Arenas Order Number: [id number] Reading MD: Ayush Hull Measurements Intervals [place] Rate: 86 P: 31 SD: 175 QRS: 0 QRSD: 126 T: 68 QT: 359 QTc: 430 Interpretive Statements Sinus rhythm Nonspecific intraventricular conduction delay Borderline T abnormalities, lateral leads Electronically Signed On 09-30-2018 23:35:49 EDT by Ayush Hull
[2018-10-01] MEDS: Ringers Solution, Lactated 1,000 ML IVC SCH (01:45)
[2018-10-01] MEDS: *HR* Heparin 5,000 UNIT/ML VIAL SQ SCH ×2 (05:51→17:34)
[2018-10-01 06:28] LABS: Basophils % 0.4 %; Eosinophils # 0.2 K/mcL (0.0-0.6); Hematocrit 32.2 % (35.3-44.9); Hemoglobin 10.5 g/dL (11.5-15.4); Immature Granulocytes % 0.6 % (0-4); Lymphocytes # 2.2 K/mcL (0.6-4.6); Lymphocytes % 30.6 %; Mean Corpuscular HGB Conc 32.6 g/dL (31.6-35.5); Mean Corpuscular Hemoglobin 33.4 pg (28.0-33.3); Mean Corpuscular Volume 102.5 fL (83.0-100.0); Monocytes # 0.5 K/mcL (0.0-1.3); Monocytes % 7.1 %; Neutrophils # 4.1 K/mcL (1.6-8.9); Platelet Count 202 K/mcL (140-400); Red Blood Count 3.14 M/mcL (3.82-4.97); Red Cell Distribution Width 12.8 % (11.5-14.5); Segmented Neutrophils % 58.3 %; White Blood Count 7.1 K/mcL (4.3-11.1)
[2018-10-01 06:47] LABS: Potassium 4.6 mEq/L (3.5-5.1)
[2018-10-01] MEDS ORDERED: Aminoglycoside Consult 1 EACH MC ONE (08:00)
[2018-10-01] MEDS: FLUoxetine HCl 10 MG CAPSULE PO SCH (08:31)
[2018-10-01] MEDS: Insulin LISPRO 300 UNITS/3 ML VIAL SQ SCH ×7 (08:32→23:09)
[2018-10-01] MEDS: Piperacillin/Tazobactam 3.375 GM in 0.9 % Sodium Chloride Mini Bag 100 ML IVPB SCH (08:33)
[2018-10-01] MEDS ORDERED: amLODIPine 5 MG TABLET PO SCH (09:00)
--- NOTE | 2018-10-01 09:53 | Podiatry Progress Note ---
Date of Encounter: 10/01/18 Time of Encounter: 09:49 - Assessment and Plan (1) Osteomyelitis Current Visit: Yes Status: Suspected Assessment: Right DIPJ toe #2 with ulceration, limited to skin breakdown CT suggestive of erosion of distal tip #2 phalanx and subcutaneous edema MR suggestive of OM WBC 7.1, improved from yesterday, afebrile today, max temp 102.4 ESR 64, CRP 149, A1C 9.4 Blood culture returned gram postive cocci x 1, set pending No purulent drainage noted, no streaking, no foul odor Minimal erythema noted to digit #2 with flaking skin Plan: Plan for OR tomorrow for distal phalangectomy NPO after MN Recommend ID consult as patient will most likely need ATB crystal gazer- appreciate recommendations Local wound care ordered Cleansed right toe #2 with 0.9 NS, painted surrounding tissue with betadine, covered ulceration with calcium alginate, 4x4 dry dressing, and kerlix. Secured with medipore tape Impression: MR/MR foot RT wo con IMPRESSION: 1. Findings compatible with osteomyelitis throughout the 2nd distal phalanx. 2. Suspected deep soft tissue ulceration at the distal aspect of the 2nd digit. 3. Diffuse subcutaneous edema compatible with cellulitis. No well-defined drainable fluid collection. D/ / Tyrel Deluca MD / Tyrel Deluca MD Interpreting Provider: Tyrel Deluca MD Qualifiers: Osteomyelitis type: other Osteomyelitis location: foot Laterality: right Qualified Code(s): M86.8X7 - Other osteomyelitis, ankle and foot (2) Cellulitis of right lower extremity Current Visit: Yes Status: Acute Assessment: Erythema extending to posterior popliteal area Does not extend past demarcation line Currently on IV zosyn and vanc Positive blood culture x 1, one set pending Currently afebrile, max temp 102.4 Plan: Continue IV atb Subjective Principal diagnosis: OM Interval history: Patient awake sitting in chair. Denies any fevers, chills, nausea, vomiting, or diarrhea. Denies any calf pain, chest pain, or shortness of breath. Reports spoke with and she is going home soon. Discussed with patient need for surgical intervention d/t OM of righ toe #2, patient tearful but agreeable. States she will discuss with son and surgeon when he stops by. No other questions or concerns at this time. Objective - Vital Signs Vital Signs: Vital Signs Temp Pulse Resp BP Pulse Ox 10/01/18 07:42 97.5 F L 59 20 175/91 96 10/01/18 03:42 97.9 F 59 14 149/70 97 10/01/18 01:05 97.5 F L 60 16 169/76 97 09/30/18 19:59 98 09/30/18 19:08 97.7 F 76 16 111/61 98 09/30/18 16:00 97.7 F 60 16 151/81 98 09/30/18 11:20 97.6 F 100 16 153/96 90 Intake and Output 09/30/18 10/01/18 10/01/18 23:59 07:59 15:59 Intake Total 1590 / 4510 100 / 460 360 / 460 Output Total 650 / 1600 500 / 500 Balance 940 / 2910 -400 / -40 360 / -40 Intake: IV Fluids 1350 / 3550 100 / 100 Lactated Ringers 1,000 ML @ 75 1000 / 3000 mls/hr IVC .[id number] [facility] Rx#: [id number] Zosyn 3.375 GM In 0.9 % Sodium 100 / 300 100 / 100 Chloride (Mini-Bag +) 100 ML @ 25 mls/hr IVPB Q8HR [facility] Rx#: [id number] Vancocin 1,500 MG In 0.9 % 250 / 250 Sodium Chloride 250 ML @ 166.67 mls/hr IVPB Q24H [facility] Rx#: [id number] Oral 240 / 960 360 / 360 Output: Urine 650 / 1600 500 / 500 Other: Meal Dinner Breakfast Percent of Meal Consumed 100% 100% Stool Size Small Stool Consistency soft Stool Characteristics Normal for Patient Stool Color Brown Weight 152.9 kg Blood Glucose* 220 179 Patient Weight 10/01/18 23:59 Weight 152.9 kg - Exam Exam: Constitiutional: Alert and oriented x 3. Well nourished. No acute distress noted Vascular: 1/4 DP/PT bilaterally, CFT <3 sec to all digits, warm to warm from tibia to toes RLE, no calf pain with squeeze RLE Neurologic: Diminished sensation to touch, normal plantar response, Dermatologic: Alarcon III ulcer noted to right digit #2, wound bed beefy red, erythema and edema noted to RLE, peeling of tissue noted right phalanx #2, Musculoskeletal: 3/5 muscle strength and normal tone RLE - Lab Result Diagrams: 10/01/18 06:05 10/01/18 06:05 Labs: Abnormal lab results WBC 12.2 K/mcL (4.3-11.1) H 09/29/18 06:02 RBC 3.14 M/mcL (3.82-4.97) L 10/01/18 06:05 Hgb 10.5 g/dL (11.5-15.4) L 10/01/18 06:05 Hct 32.2 % (35.3-44.9) L 10/01/18 06:05 MCV 102.5 fL (83.0-100.0) H 10/01/18 06:05 MCH 33.4 pg (28.0-33.3) H 10/01/18 06:05 MCHC 31.5 g/dL (31.6-35.5) L 09/29/18 06:02 Neutrophils # 9.8 K/mcL (1.6-8.9) H 09/29/18 06:02 ESR 64 mm/hr (0-15) H 09/28/18 17:32 Chloride 108 mEq/L (98-107) H 09/29/18 06:02 Carbon Dioxide 22 mEq/L (23-29) L 10/01/18 06:05 BUN 34 mg/dL (8-23) H 10/01/18 06:05 Creatinine 1.60 mg/dL (0.60-1.20) H 10/01/18 06:05 Est GFR ( Amer) 40 (> 60) L 10/01/18 06:05 Est GFR (Non-Af Amer) 33 (> 60) L 10/01/18 06:05 Glucose 197 mg/dL (70-105) H 10/01/18 06:05 POC Glucose 285 mg/dL (70-99) H 09/30/18 15:58 Hemoglobin A1c 9.7 % (-5.6) H 09/28/18 17:32 Calculated Osmolality 301 (280-300) H 09/30/18 05:35 Calcium 8.5 mg/dL (8.6-10.3) L 09/30/18 05:35 AST 10 Units/L (13-39) L 09/28/18 12:45 C-Reactive Protein 149 mg/L (Less than 10) H 09/28/18 17:32 Lipase 9 Units/L (11-82) L 09/28/18 12:45 Urine Clarity Turbid (Clear) A 09/29/18 17:00 Ur Specific [place] 1.029 (1.010-1.025) H 09/29/18 17:00 Urine Protein >=1000 mg/dL (Neg-Trace) H 09/29/18 17:00 Urine Glucose (UA) 250 mg/dL (Normal) H 09/29/18 17:00 Urine Blood Small (Negative) H 09/29/18 17:00 Urine Bilirubin Small (Negative) H 09/29/18 17:00 Ur Leukocyte Esterase Small (Negative) H 09/29/18 17:00 Urine Microscopic RBC 5-15 per hpf (0-3) H 09/29/18 17:00 Urine Microscopic WBC TNTC per hpf (0-3) H 09/29/18 17:00 Ur Squamous Epith Cells Many per lpf (None-Few) H 09/29/18 17:00 Urine Bacteria Moderate per hpf (None-Few) H 09/29/18 17:00 Ur Culture Indicated? YES (NO) A 09/29/18 17:00 Protein/Creatinin Ratio 3.73 mg/mg (0.00-0.20) H 09/29/18 18:35 Urine Total Protein 626 mg/dL (1-14) H 09/29/18 18:35 Vancomycin Trough 18 mcg/mL (5-10) H 09/30/18 17:26 Rheumatoid Factor 23 IU/mL (Less than 14) H 09/30/18 11:00 Complement C3 204 mg/dL (87-200) H 09/30/18 11:00 Complement C4 62 mg/dL (19-52) H 09/30/18 11:00 Streptococcus sp PCR DETECTED (Not Detect) A 09/28/18 13:25 Microbiology, Last 48 Hours 09/28/18 13:25 Blood Culture - Final Peripheral Venipuncture Str. dysgalactiae equisimilis 09/29/18 17:00 Urine Culture - Final Urine,Clean Catch No growth. Consult Discharge Plan - Plan Referrals: NONE,PCP [Primary Care Provider] -
--- NOTE | 2018-10-01 11:39 | Nephrology Progress Note ---
Date of Encounter: 10/01/18 Time of Encounter: 11:35 - Assessment and Plan (1) STEPHANIA (acute kidney injury) Current Visit: Yes Status: Acute Patient's renal function is likely to baseline based off the creatinine being relatively stable last few days. While we do not have data for several years her uncontrolled diabetes could easily have led to a decline in her renal function during that time period. At this time I recommend continuing with current therapies minimize the patient's exposure to nephrotoxic agents. Adjust medications for renal function . The patient will need a follow-up in nephrology clinic 4 to 8 weeks after discharge with a renal function panel 1-2 weeks prior to the clinic visit. Since her renal function seems to be overall stable we will sign off. Thank you for the consult. Please feel free to re-consult if you have any questions or concerns. (2) Cellulitis of right lower extremity Current Visit: Yes Status: Acute (3) Diabetes mellitus Current Visit: Yes Status: Acute Qualifiers: Diabetes mellitus type: type 2 Diabetes mellitus supervisor intermediates insulin use: with assisted use Diabetes mellitus complication status: with hyperglycemia Qualified Code(s): E11.65 - Type 2 diabetes mellitus with hyperglycemia; Z79.4 - [facility] (current) use of insulin (4) Osteomyelitis Current Visit: Yes Status: Suspected Qualifiers: Osteomyelitis type: other Osteomyelitis location: foot Laterality: right Qualified Code(s): M86.8X7 - Other osteomyelitis, ankle and foot Subjective Principal diagnosis: OM Interval history: Patient seen. She has no new complaint. ROS is overall stable. Objective - Vital Signs Vital signs: Vital Signs Temp Pulse Resp BP Pulse Ox 10/01/18 07:42 97.5 F L 59 20 175/91 96 10/01/18 03:42 97.9 F 59 14 149/70 97 10/01/18 01:05 97.5 F L 60 16 169/76 97 09/30/18 19:59 98 09/30/18 19:08 97.7 F 76 16 111/61 98 09/30/18 16:00 97.7 F 60 16 151/81 98 Intake and Output 09/30/18 10/01/18 10/01/18 23:59 07:59 15:59 Intake Total 1590 / 4510 100 / 460 360 / 460 Output Total 650 / 1600 500 / 500 Balance 940 / 2910 -400 / -40 360 / -40 Intake: IV Fluids 1350 / 3550 100 / 100 Lactated Ringers 1,000 ML @ 75 1000 / 3000 mls/hr IVC .[id number] [facility] Rx#: [id number] Zosyn 3.375 GM In 0.9 % Sodium 100 / 300 100 / 100 Chloride (Mini-Bag +) 100 ML @ 25 mls/hr IVPB Q8HR [facility] Rx#: [id number] Vancocin 1,500 MG In 0.9 % 250 / 250 Sodium Chloride 250 ML @ 166.67 mls/hr IVPB Q24H [facility] Rx#: [id number] Oral 240 / 960 360 / 360 Output: Urine 650 / 1600 500 / 500 Other: Meal Dinner Breakfast Percent of Meal Consumed 100% 100% Stool Size Small Stool Consistency soft Stool Characteristics Normal for Patient Stool Color Brown Weight 152.9 kg Blood Glucose* 220 179 Patient Weight 10/01/18 23:59 Weight 152.9 kg - General Appearance General appearance: Present: well-developed, well-nourished EENT: Present: ATNC Neck: Present: supple Cardiology: Present: regular rate Neurologic: Present: alert and oriented x3 Psychiatric: Present: mood/affect appropriate - Lab 10/01/18 06:05 10/01/18 06:05 Most recent lab results 10/01/18 06:05 Calcium 9.0 Consult Discharge Plan - Plan Referrals: NONE,PCP [Primary Care Provider] -
--- NOTE | 2018-10-01 11:52 | Internal Med Progress Note ---
Hospitalist Progress Note - Encounter Date of Encounter: 10/01/18 Time of Encounter: 08:15 - Subjective Interval History: Reports improvement in her R foot discomfort. No fever/chills or N/V - Exam Vitals: Temp Pulse Resp BP Pulse Ox 97.5 F L 59 20 175/91 96 10/01/18 07:42 10/01/18 07:42 10/01/18 07:42 10/01/18 07:42 10/01/18 07:42 Exam: General: Patient is alert, no acute distress, oriented x 3, morbidly obese Respiratory: Good respiratory effort. Normal breath sounds. No wheezing or crackles. Cardiovascular: Regular rate and rhythm. s1 and s2 normal No clicks, rubs, gallops, or murmurs. Abdomen: Abdomen is soft, nontender. Bowel sounds are present Musculoskeletal: Spontaneously moving all extremities Skin: right foot dressing c/d/i with receding erythema over the right smith Neuro: Alert oriented x 3 normal cranial nerves, no focal deficits Psych: Patient's affect is normal - Assessment and Plan (1) Sepsis Current Visit: Yes Status: Acute Assessment and Plan: due to R LE cellulitis. MRI also +ve for R 2nd distal phalanx OM Blood cultures growing possible streptococci in 1 out of 2 sets WBC normal x 2, afebrile > 48 hours. Continue IV vanc/zosyn Appreciate Podiatry input, for possible OR tomorrow will also consult ID for further abx management (2) Osteomyelitis Current Visit: Yes Status: Acute Assessment and Plan: as above for OR by podiatry tomorrow (3) Cellulitis of right lower extremity Current Visit: Yes Status: Acute Assessment and Plan: improving on broad spectrum abx, continue (4) STEPHANIA (acute kidney injury) Current Visit: Yes Status: Acute Assessment and Plan: suspect a component of CKD Cr stable around 1.6 US retroperitoneum unremarkable appreciate nephrology input, for follow up in 4-8 weeks renally dosed abx (5) Morbid obesity with BMI of 50.0-59.9, adult Current Visit: Yes Status: Chronic Assessment and Plan: lifestyle modifications emphasized (6) Diabetes mellitus Current Visit: Yes Status: Chronic Assessment and Plan: increase levemir to 15U BID continue high dose sliding scale with prandial lispro (7) HTN (hypertension) Current Visit: Yes Status: Chronic Assessment and Plan: continue coreg norvasc added, will uptitrate to 10mg DVT Prophylaxis: SQ heparin - Time Spent with Patient Total time spent is greater than 50% in coordination of care (as documented) at patient's floor/unit and/or counseling patient: 25 - 35 minutes Plan of Care Discussed with: patient (discussed with ID as well) Internal Medicine: Result - Labs CBC & Chem 7: 10/01/18 06:05 10/01/18 06:05 Labs: Short CBC 10/01/18 Range/Units 06:05 WBC 7.1 (4.3-11.1) K/mcL Hgb 10.5 L (11.5-15.4) g/dL Hct 32.2 L (35.3-44.9) % Plt Count 202 (140-400) K/mcL Neutrophils # 4.1 (1.6-8.9) K/mcL BMP 10/01/18 06:05 Sodium 138 Potassium 4.6 Chloride 107 Carbon Dioxide 22 L BUN 34 H Creatinine 1.60 H Glucose 197 H Calcium 9.0 - Impressions Impressions Foot MRI 09/29/18 10:30 IMPRESSION: 1. Findings compatible with osteomyelitis throughout the 2nd distal phalanx. 2. Suspected deep soft tissue ulceration at the distal aspect of the 2nd digit. 3. Diffuse subcutaneous edema compatible with cellulitis. No well-defined drainable fluid collection. D/ / Tyrel Deluca MD / Tyrel Deluca MD Interpreting Provider: Tyrel Deluca MD Consult Discharge Plan - Plan Referrals: NONE,PCP [Primary Care Provider] - (1) Sepsis Qualifiers: Sepsis type: Streptococcus, other Qualified Code(s): A40.8 - Other streptococcal sepsis (2) Osteomyelitis Qualifiers: Osteomyelitis type: unspecified type Osteomyelitis location: foot Laterality: right Qualified Code(s): M86.9 - Osteomyelitis, unspecified (6) Diabetes mellitus Qualifiers: Diabetes mellitus type: type 2 Diabetes mellitus exterminator helper insulin use: with correction use Diabetes mellitus complication status: with hyperglycemia Q ualified Code(s): E11.65 - Type 2 diabetes mellitus with hyperglycemia; Z79.4 - termite treater helper (current) use of insulin (7) HTN (hypertension) Qualifiers: Hypertension type: essential hypertension Qualified Code(s): I10 - Essential (primary) hypertension
--- NOTE | 2018-10-01 12:27 | Infectious Disease Consult ---
Infectious Disease-Consult - Encounter Date/Time Date of Encounter: 10/01/18 - Data of Consult Patient: new to practice Reason for consult: R 2nd toe OM Consult date: 10/01/18 Requesting Physician: Salomon Griffith MD Primary Care Provider: PCP NONE - HPI HPI: Ms. De Souza is a 63-year-old female with past medical history of diabetes, hyper lipidemia, hypertension, and morbid obesity. The patient was admitted to the hospital 09/28/18 for right lower extreme a cellulitis, acute kidney injury, vomiting/diarrhea, sepsis, osteomyelitis. We are consulted 10/01/18 for further workup and treatment recommendations for right foot second toe osteomyelitis. Briefly, the patient is a 63-year-old female with past medical history as stated above. The patient presents emergency department with complaints of nausea, vomiting, and diarrhea on the day of admission. She will increased right lower extremity erythema as well. Upon arrival, she had low-grade temp with a MAXIMUM TEMPERATURE of 99.5. She was otherwise hemodynamically stable. She had leukocytosis with neutrophilic predominance in acute kidney injury. ESR was elevated at 64 with a CRP of 149. LFTs and lipase were normal. She had a venous duplex study of the right lower extremity that was negative for DVT or SVT. She has CT of the right foot showed possible ostial myelitis of the distal second toe phalanx and cellulitis versus sterile edema. Blood cultures were obtained 2 sets. She was started empirically on IV vancomycin and Zosyn and was admitted to the hospital for further evaluation and treatment. Shortly after admission, the patient became febrile with a MAXIMUM TEMPERATURE of 102.4. Podiatry was consulted and she underwent an MRI of the right foot that showed also mellitus of the second distal phalanx and cellulitis. Urinalysis appeared contaminated and the culture was negative. Nephrology was consulted to assist with her acute kidney injury. She underwent a retroperitoneal ultrasound that was negative. No surgical intervention planned at this time. Currently, she is on vancomycin and Zosyn. We have been asked to evaluate and make further recommendations. During my exam today, the patient states that she developed an ulcer and swelling to the right foot second toe about a month ago. She states she has been doctoring at home, but developed redness of her leg about 2 weeks ago. She states she has not been on any antibiotics prior to admission. She reports onset of vomiting and nausea about 2 days prior to admission. States she devel oped chills prior to admission, but denies any known fevers or rigors. Denies headache or neck pain. Denies chest pain, shortness of breath, or cough. States the nausea and vomiting has resolved and her appetite is better. She reported poor by mouth intake prior to admission. Denies urinary complaints including dysuria, urinary frequency, or trouble starting her stream. Denies any back or flank pain. States the pain to the right lower extremity is markedly improved and is minimal this time. Denies oral thrush or skin rashes. She states she monitors her blood sugars at home and states they have been running between 150 and 200. The patient lives at home with her son, [id number], , and grandchild. She does not work outside the home. She denies tobacco, alcohol, or illicit drug use. Denies chronic infectious diseases. States she has some dogs at home, but denies any bites or scratches. Denies any recent travel outside the [facility]. - ROS Review of Systems: All systems reviewed and no additional remarkable complaints except as stated. - Results CBC & Chem 7: 10/02/18 05:51 10/02/18 05:51 - Exam Vitals: Temp Pulse Resp BP Pulse Ox 97.6 F 58 19 155/83 97 10/01/18 11:48 10/01/18 11:48 10/01/18 11:48 10/01/18 11:48 10/01/18 11:48 Exam: Head: Atraumatic, normal inspection, normocephalic. Eye: EOMI, PERRLA, no scleral icterus noted. ENT: Mucous membranes moist. No odontogenic infection noted. Neck: Normal inspection, no meningismus. Respiratory: Clear to auscultation. No rales, respiratory distress, rhonchi, or wheezes noted. Cardiovascular: Regular rate and rhythm, S1 and S2 audible. No murmurs, rubs, or gallops. GI: Soft, nondistended, normal bowel sounds. Extremities: Venous stasis dermatitis noticed the bilateral lower extremities. Right foot dressing clean, dry, and intact. Erythema noted to the right lower extremity that has receded from previous skin markings. Warm to touch and mildly tender. Neurological: Alert, oriented 3, no focal deficits. Psychiatric: normal affect, normal mood. Skin: Dry, intact, warm. Normal color. No rashes. Carvedilol [Coreg] 6.25 mg PO BID 09/28/18 [History] FLUoxetine HCl [Fluoxetine HCl] 10 mg PO QAM 09/28/18 [History] Quinapril HCl 40 mg PO DAILY 09/28/18 [History] Simvastatin [Zocor] 20 mg PO HS 09/28/18 [History] Insulin ASPART [Novolog Flexpen] 12 - 16 unit SQ TIDAC 09/29/18 [History] Insulin Glargine,Hum.rec.anlog [Lantus Solostar] 40 unit SQ HS 09/29/18 [History] Insulin Glargine,Hum.rec.anlog [Lantus Solostar] 55 unit SQ QAM 09/29/18 [History] Metformin HCl [Glucophage] 1,000 mg PO BID 09/29/18 [History] cefTRIAXone [Rocephin] 2,000 mg IVPB DAILY #42 vial 10/02/18 [Rx] Allergy/AdvReac Type Severity Reaction Status Date / Time codeine AdvReac Hives Verified 09/29/18 21:15 - Assessment and Plan (1) Sepsis Current Visit: Yes Status: Acute The patient had 2 sepsis criteria with acute kidney injury on admission. Likely secondary to right foot cellulitis and osteomyelitis. Improved. Leukocytosis resolved. Afebrile overnight. Blood cultures on 09/28/18 are +1 out of 2 sets for S. dysgalactiae. Qualifiers: Sepsis type: sepsis due to unspecified organism Qualified Code(s): A41.9 - Sepsis, unspecified organism SNOMED Code(s): 96714770 (2) Bacteremia Current Visit: Yes Status: Acute Blood cultures on 09/28/18 are +1 out of 2 sets for S. dysgalactiae. Likely secondary to right foot cellulitis and osteomyelitis. Currently on Vanc and Zosyn. SNOMED Code(s): 2167228 (3) Osteomyelitis Current Visit: Yes Status: Acute Location: Right foot secod toe distal phalanx. Causative organism: Unclear, but likely S. dysgalactiae based on blood culture results. CT of the right foot showed possible osteoporosis of the distal second toe phalanx and cellulitis versus sterile edema. MRI of the right foot showed osteomyelitis of the second distal phalanx and cellulitis. ESR 64, CRP 149. Wound cultures have not been obtained. Podiatry consult. No operative debridement scheduled at this point. Currently on vancomycin and Zosyn. Qualifiers: Osteomyelitis type: other Osteomyelitis location: foot Laterality: right Qualified Code(s): M86.8X7 - Other osteomyelitis, ankle and foot SNOMED Code(s): 39645278 (4) Cellulitis of right lower extremity Current Visit: Yes Status: Acute Location: RLE. Likely secondary to diabetic foot ulcer. Causative organism: Unclear. Improved per patient report. CT and MRI negative for abscess. Currently on Vanc and Zosyn. SNOMED Code(s): 882421075 (5) STEPHANIA (acute kidney injury) Current Visit: Yes Status: Acute STEPHANIA on possible CKD. Serum creatinine improving. Nephrology consulted and signed off. Dose-adjust medications and avoid nephrotoxins as able. SNOMED Code(s): 50974971, 99645482 (6) Gastroenteritis Current Visit: Yes Status: Resolved Resolved. SNOMED Code(s): 19196857 (7) Diabetes mellitus Current Visit: Yes Status: Chronic Uncontrolled. Hemoglobin A1c 9.7%. Recommend aggressive glucose monitoring and control troponin wound healing and prevent reinfection. Management per the primary team. Qualifiers: Diabetes mellitus type: type 2 Diabetes mellitus termination clerk insulin use: with termination clerk use Diabetes mellitus complication status: with hyperglycemia Qualified Code(s): E11.65 - Type 2 diabetes mellitus with hyperglycemia; Z79.4 - exterminator helper (current) use of insulin SNOMED Code(s): 55576511 (8) Morbid obesity with BMI of 50.0-59.9, adult Current Visit: Yes Status: Chronic SNOMED Code(s): 259410195, 02014090835609 (9) HTN (hypertension) Current Visit: Yes Status: Chronic Qualifiers: Hypertension type: essential hypertension Qualified Code(s): I10 - Essential (primary) hypertension SNOMED Code(s): 37504370 - Recommendations Recommendations: Repeat blood cultures 2 sets. Await further recommendations from the podiatry team. Wound care per the podiatry team. Discontinue vancomycin and Zosyn. Start Rocephin 2 g IV daily. Start Flagyl 500 mg by mouth 3 times a day. Duration of treatment depends on the clinical picture, but likely 6 weeks. Monitor renal function dose just antibiotics. social human services assistants to assist with discharge planning. Past Med Surg Social Fam HX - Past Medical History Attestation: Yes The following information was validated with the patient. Source: patient, old records reviewed, nursing notes reviewed Medical history: diabetes, hyperlipidemia, hypertension Psychiatric history: no psych history - Past Surgical History Surgical History: cholecystectomy - Social History Smoking Status: Never smoker Smokeless Tobacco Status: No Alcohol use: none Drug use: none Occupational status: retired Current living situation: Home, With Family Activity Level: Uses cane/walker Recent Out of Country Travel Within the Last 8 Weeks: No Exposure or Possible Exposure to Illness During Travel: No Consult Discharge Plan - Plan Referrals: Luz Ruelas DO [Resident] - 10/09/18 1:00 pm (please keep this appoint ment, this is your hospital follow up and this will establish you with this doctor for future visits) Venus Aguilar OFFSHORE DIVER [Advanced Practice Nurse] - 10/16/18 4:00 pm NONE,PCP [Primary Care Provider] - Prescriptions: cefTRIAXone [Rocephin] 2,000 mg IVPB DAILY #42 vial - Attending Attestation I have personally performed a face to face evaluation on this patient. I have reviewed and agree with the care plan. History and Exam by me shows: Assessment and plan: Osteomyelitis of the right foot second toe Bacteremia with Streptococcus to [facility] likely source osteomyelitis Sepsis Diabetes mellitus type 2 Morbid obesity Cellulitis of the right lower extremity Acute kidney injury Recommendations Repeat blood cultures 2 sets. Await further recommendations from the podiatry team. Wound care per the podiatry team. Discontinue vancomycin and Zosyn. Start Rocephin 2 g IV daily. Start Flagyl 500 mg by mouth 3 times a day. Duration of treatment depends on the clinical picture, but likely 6 weeks. Monitor renal function dose just antibiotics. social human services assistants to assist with discharge planning.
[2018-10-01] MEDS: Insulin DETEMIR 100 UNIT/ML X5UNITS SQ SCH ×2 (13:09→20:35)
[2018-10-02] MEDS: *HR* Heparin 5,000 UNIT/ML VIAL SQ SCH ×2 (05:35→17:44)
[2018-10-02 06:07] LABS: Basophils % 0.7 %; Eosinophils # 0.2 K/mcL (0.0-0.6); Eosinophils % 3.1 %; Hematocrit 35.1 % (35.3-44.9); Hemoglobin 11.2 g/dL (11.5-15.4); Immature Granulocytes % 1.3 % (0-4); Lymphocytes # 2.1 K/mcL (0.6-4.6); Lymphocytes % 34.1 %; Mean Corpuscular HGB Conc 31.9 g/dL (31.6-35.5); Mean Corpuscular Hemoglobin 32.7 pg (28.0-33.3); Mean Corpuscular Volume 102.3 fL (83.0-100.0); Mean Platelet Volume 10.8 fL (9.4-12.4); Monocytes # 0.4 K/mcL (0.0-1.3); Monocytes % 6.8 %; Neutrophils # 3.3 K/mcL (1.6-8.9); Platelet Count 237 K/mcL (140-400); Red Blood Count 3.43 M/mcL (3.82-4.97); Red Cell Distribution Width 12.7 % (11.5-14.5)
[2018-10-02 06:41] LABS: Calcium 9.1 mg/dL (8.6-10.3); Potassium 4.4 mEq/L (3.5-5.1)
--- NOTE | 2018-10-02 08:36 | Podiatry Progress Note ---
Date of Encounter: 10/02/18 Time of Encounter: 08:33 - Assessment and Plan (1) Osteomyelitis Current Visit: Yes Status: Acute Assessment: Right DIPJ toe #2 with ulceration, limited to skin breakdown CT suggestive of erosion of distal tip #2 phalanx and subcutaneous edema MR suggestive of OM WBC 6.0, improved from yesterday, afebrile today, max temp 102.4 ESR 64, CRP 149, A1C 9.4 Blood culture returned gram postive cocci x 1, set pending Dressing in tact without any strike through Plan: Patient refusing surgery ATB per ID recommendations Local wound care ordered, nursing to change Follow up in office in 1 week s/p discharge, please make appointment prior to d/c Impression: MR/ foot RT wo con IMPRESSION: 1. Findings compatible with osteomyelitis throughout the 2nd distal phalanx. 2. Suspected deep soft tissue ulceration at the distal aspect of the 2nd digit. 3. Diffuse subcutaneous edema compatible with cellulitis. No well-defined drainable fluid collection. D/ / Tyrel Deluca MD / Tyrel Deluca MD Interpreting Provider: Tyrel Deluca MD Qualifiers: Osteomyelitis type: other Osteomyelitis location: foot Laterality: right Qualified Code(s): M86.8X7 - Other osteomyelitis, ankle and foot (2) Cellulitis of right lower extremity Current Visit: Yes Status: Acute Assessment: Erythema extending to posterior popliteal area Does not extend past demarcation line Currently on IV zosyn and vanc Positive blood culture x 1, one set pending Currently afebrile, max temp 102.4 Plan: ATB per ID recommendations Subjective Principal diagnosis: OM Interval history: Patient awake in bed. Alert and oriented. Tearful. Denies any fevers, chills, nausea, vomiting, or diarrhea. Denies any calf pain, chest pain, or shortness of breath. States that she does not want any surgical intervention at this time. States she wants to go home with antibiotics. Discussed with patient risk for kidney injury with termite exterminator antibiotics as well as further destruction of bone. Patient made aware she may need amputation regardless of IV atb treatment if infection becomes worse or she becomes septic. Verbalized understanding. Patient continues to state that she wants to go home and at this time she does not want surgical intervention. Discussed with Dr. Ackerman. No other questions or concerns at this time. Objective - Vital Signs Vital Signs: Vital Signs Temp Pulse Resp BP Pulse Ox 10/02/18 07:55 97.7 F 71 17 173/82 95 10/02/18 04:12 178/69 10/02/18 03:14 97.9 F 68 17 202/103 95 10/01/18 23:49 97.6 F 61 17 172/77 97 10/01/18 20:35 100 10/01/18 19:26 97.6 F 68 17 151/75 100 10/01/18 16:07 97.6 F 60 20 173/69 99 10/01/18 11:48 97.6 F 58 19 155/83 97 Intake and Output 10/01/18 10/02/18 10/02/18 23:59 07:59 15:59 Other: # Voids 1 Weight 151.9 kg Blood Glucose* 133 125 - Exam Exam: Constitiutional: Alert and oriented x 3. Well nourished. No acute distress noted Vascular: 1/4 DP/PT bilaterally, CFT <3 sec to all digits, warm to warm from tibia to toes RLE, no calf pain with squeeze RLE Neurologic: Diminished sensation to touch, normal plantar response, Dermatologic: Dressing in tact, no strike through noted, erythema noted to RLE, does not extend beyond demarcation line Musculoskeletal: 3/5 muscle strength and normal tone RLE - Lab Result Diagrams: 10/02/18 05:51 10/02/18 05:51 Labs: Abnormal lab results WBC 12.2 K/mcL (4.3-11.1) H 09/29/18 06:02 RBC 3.43 M/mcL (3.82-4.97) L 10/02/18 05:51 Hgb 11.2 g/dL (11.5-15.4) L 10/02/18 05:51 Hct 35.1 % (35.3-44.9) L 10/02/18 05:51 MCV 102.3 fL (83.0-100.0) H 10/02/18 05:51 MCH 33.4 pg (28.0-33.3) H 10/01/18 06:05 MCHC 31.5 g/dL (31.6-35.5) L 09/29/18 06:02 Neutrophils # 9.8 K/mcL (1.6-8.9) H 09/29/18 06:02 ESR 64 mm/hr (0-15) H 09/28/18 17:32 Chloride 108 mEq/L (98-107) H 09/29/18 06:02 Carbon Dioxide 22 mEq/L (23-29) L 10/01/18 06:05 BUN 27 mg/dL (8-23) H 10/02/18 05:51 Creatinine 1.35 mg/dL (0.60-1.20) H 10/02/18 05:51 Est GFR ( Amer) 48 (> 60) L 10/02/18 05:51 Est GFR (Non-Af Amer) 40 (> 60) L 10/02/18 05:51 Glucose 147 mg/dL (70-105) H 10/02/18 05:51 POC Glucose 125 mg/dL (70-99) H 10/02/18 05:56 Hemoglobin A1c 9.7 % (-5.6) H 09/28/18 17:32 Calculated Osmolality 306 (280-300) H 10/02/18 05:51 Calcium 8.5 mg/dL (8.6-10.3) L 09/30/18 05:35 AST 10 Units/L (13-39) L 09/28/18 12:45 C-Reactive Protein 149 mg/L (Less than 10) H 09/28/18 17:32 Lipase 9 Units/L (11-82) L 09/28/18 12:45 Urine Clarity Turbid (Clear) A 09/29/18 17:00 Ur Specific [place] 1.029 (1.010-1.025) H 09/29/18 17:00 Urine Protein >=1000 mg/dL (Neg-Trace) H 09/29/18 17:00 Urine Glucose (UA) 250 mg/dL (Normal) H 09/29/18 17:00 Urine Blood Small (Negative) H 09/29/18 17:00 Urine Bilirubin Small (Negative) H 09/29/18 17:00 Ur Leukocyte Esterase Small (Negative) H 09/29/18 17:00 Urine Microscopic RBC 5-15 per hpf (0-3) H 09/29/18 17:00 Urine Microscopic WBC TNTC per hpf (0-3) H 09/29/18 17:00 Ur Squamous Epith Cells Many per lpf (None-Few) H 09/29/18 17:00 Urine Bacteria Moderate per hpf (None-Few) H 09/29/18 17:00 Ur Culture Indicated? YES (NO) A 09/29/18 17:00 Protein/Creatinin Ratio 3.73 mg/mg (0.00-0.20) H 09/29/18 18:35 Urine Total Protein 626 mg/dL (1-14) H 09/29/18 18:35 Vancomycin Trough 18 mcg/mL (5-10) H 09/30/18 17:26 Rheumatoid Factor 23 IU/mL (Less than 14) H 09/30/18 11:00 Complement C3 204 mg/dL (87-200) H 09/30/18 11:00 Complement C4 62 mg/dL (19-52) H 09/30/18 11:00 Streptococcus sp PCR DETECTED (Not Detect) A 09/28/18 13:25 Microbiology, Last 48 Hours 09/28/18 13:25 Blood Culture - Final Peripheral Venipuncture Str. dysgalactiae equisimilis 09/29/18 17:00 Urine Culture - Final Urine,Clean Catch No growth. Consult Discharge Plan - Plan Referrals: Luz Ruelas DO [Resident] - 10/09/18 1:00 pm (please keep this appointment, this is your hospital follow up and this will establish you with this doctor for future visits) NONE,PCP [Primary Care Provider] -
[2018-10-02] MEDS ORDERED: cefTRIAXone 2,000 MG in 0.9 % Sodium Chloride Mini Bag 100 ML IVPB SCH (09:00)
--- NOTE | 2018-10-02 09:10 | Infectious Disease Progress No ---
ID Progress Note Date of Encounter: 10/02/18 Time of Encounter: 09:08 - Subjective Subjective: Patient seen and examined. No acute events noted overnight. Patient states overall she feels well today. Denies fevers, chills, or rigors. Denies chest pain, shortness of breath, or cough. Denies nausea, vomiting, diarrhea, or constipation. Denies abdominal pain or urinary complaints. States her last bowel movement was this morning. Denies oral thrush or skin rashes. - Objective CBC & Chem 7: 10/02/18 05:51 10/03/18 04:49 - Exam Vitals: Temp Pulse Resp BP Pulse Ox 97.7 F 71 17 173/82 95 10/02/18 07:55 10/02/18 07:55 10/02/18 07:55 10/02/18 07:55 10/02/18 07:55 Exam: Head: Atraumatic, normal inspection, normocephalic. Eye: EOMI, PERRLA, no scleral icterus noted. ENT: Mucous membranes moist. No odontogenic infection noted. Neck: Normal inspection, no meningismus. Respiratory: Clear to auscultation. No rales, respiratory distress, rhonchi, or wheezes noted. Cardiovascular: Regular rate and rhythm, S1 and S2 audible. No murmurs, rubs, or gallops. GI: Soft, obese, normal bowel sounds. Nontender. Extremities: Venous stasis dermatitis noticed the bilateral lower extremities. Right foot dressing clean, dry, and intact. Erythema noted to the right lower extremity that has receded from previous skin markings. Warm to touch and mildly tender, but improved from previous evaluations.. Neurological: Alert, oriented 3, no focal deficits. Psychiatric: normal affect, normal mood. Skin: Dry, intact, warm. Normal color. No rashes. - Assessment and Plan (1) Sepsis Status: Acute The patient had 2 sepsis criteria with acute kidney injury on admission. Likely secondary to right foot cellulitis and osteomyelitis. Improved. Leukocytosis resolved. Afebrile overnight. Blood cultures on 09/28/18 are +1 out of 2 sets for S. dysgalactiae. Repeat blood cultures drawn 10/02/18 are pending x 2 sets. Qualifiers: Sepsis type: sepsis due to unspecified organism Qualified Code(s): A41.9 - Sepsis, unspecified organism SNOMED Code(s): 27292088 (2) Bacteremia Status: Acute Causative organism: S. dysgalactiae. Blood cultures on 09/28/18 are +1 out of 2 sets for S. dysgalactiae. Repeat blood cultures drawn 10/02/18 are pending x 2 sets. Likely secondary to right foot cellulitis and osteomyelitis. Currently on Rocephin. SNOMED Code(s): 5020980 (3) Osteomyelitis Status: Acute Location: Right foot secod toe distal phalanx. Causative organism: Unclear, but likely S. dysgalactiae based on blood culture results. CT of the right foot showed possible osteoporosis of the distal second toe phalanx and cellulitis versus sterile edema. MRI of the right foot showed osteomyelitis of the second distal phalanx and cellulitis. ESR 64, CRP 149. Wound cultures have not been obtained. Podiatry consulted. Patient declined operative debridement/amputation. Currently on Rocephin and Flagyl. Qualifiers: Osteomyelitis type: other Osteomyelitis location: foot Laterality: right Qualified Code(s): M86.8X7 - Other osteomyelitis, ankle and foot SNOMED Code(s): 95539684 (4) Cellulitis of right lower extremity Status: Acute Location: RLE. Likely secondary to diabetic foot ulcer. Causative organism: Unclear, but likely S. dysgalactiae. Improved. CT and MRI negative for abscess. Currently on Rocephin and Flagyl. SNOMED Code(s): 130862929 (5) STEPHANIA (acute kidney injury) Status: Acute STEPHANIA on possible CKD. Serum creatinine improving. Nephrology consulted and signed off. Dose-adjust medications and avoid nephrotoxins as able. SNOMED Code(s): 75906941, 01539965 (6) Gastroenteritis Status: Resolved Resolved. SNOMED Code(s): 73056689 (7) Diabetes mellitus Status: Chronic Uncontrolled. Hemoglobin A1c 9.7%. Recommend aggressive glucose monitoring and control troponin wound healing and prevent reinfection. Management per the primary team. Qualifiers: Diabetes mellitus type: type 2 Diabetes mellitus tank terminal gauger insulin use: with tank terminal gauger use Diabetes mellitus complication status: with hyperglycemia Qualified Code(s): E11.65 - Type 2 diabetes mellitus with hyperglycemia; Z79.4 - tank terminal gauger (current) use of insulin SNOMED Code(s): 17433639 (8) Morbid obesity with BMI of 50.0-59.9, adult Status: Chronic SNOMED Code(s): 417112153, 01114477635499 (9) HTN (hypertension) Status: Chronic Qualifiers: Hypertension type: essential hypertension Qualified Code(s): I10 - Essential (primary) hypertension SNOMED Code(s): 43388824 - Recommendations Recommendations: Await repeat blood cultures. Wound care per the podiatry team. Continue Rocephin 2 g IV daily. Continue Flagyl 500 mg by mouth 3 times a day. Duration of treatment depends on the clinical picture, but likely 6 weeks. Monitor renal function dose just antibiotics. vocational services specialist to assist with discharge planning. Avoid insertion of long-term IV access until repeat cultures are negative x 48 hours. Will need weekly CBC, BUN/Cr, ESR, CRP. Will need weekly IV care per protocol. Follow up with ID 10/16/18 at 1600. Consult Discharge Plan - Plan Instructions: Metronidazole (By mouth), Amlodipine (By mouth), Ceftriaxone (Injection), Cellulitis (DC), Diabetes Mellitus Type 2 in Adults (DC), Sepsis (DC), Chronic Hypertension (DC) Referrals: Luis Fernando Moraes MD [Partnered Physician] - 12/01/18 2:15 pm (Please follow up as schedule....) Luz Ruelas DO [Resident] - 10/09/18 1:00 pm (please keep this appointment, this is your hospital follow up and this will establish you with this doctor for future visits) Too Morfin DPM [Partnered Physician] - 10/17/18 9:30 am (Please follow up as schedule...) Venus Aguilar CNP [Advanced Practice Nurse] - 10/16/18 4:00 pm (Please follow up as schedule...) NONE,PCP [Primary Care Provider] - Prescriptions: metroNIDAZOLE [Flagyl] 500 mg PO TID 40 Days #120 tablet amLODIPine [Norvasc] 10 mg PO DAILY #60 tablet cefTRIAXone [Rocephin] 2,000 mg IVPB DAILY #42 vial - Attending Attestation I have personally performed a face to face evaluation on this patient. I have reviewed and agree with the care plan. History and Exam by me shows: Assessment and plan: 1.Osteomyelitis of the right foot second toe 2.Bacteremia with Streptococcus dysaglactaie likely source osteomyelitis 3.Sepsis 4.Diabetes mellitus type 2 5.Morbid obesity 6.Cellulitis of the right lower extremity 7.Acute kidney injury Recommendations: Await repeat blood cultures. Wound care per the podiatry team. Continue Rocephin 2 g IV daily. Continue Flagyl 500 mg by mouth 3 times a day. Duration of treatment depends on the clinical picture, but likely 6 weeks. Monitor renal function dose just antibiotics. vocational services specialist to assist with discharge planning. Avoid insertion of long-term IV access until repeat cultures are negative x 48 hours. Will need weekly CBC, BUN/Cr, ESR, CRP. Will need weekly IV care per protocol. Follow up with ID 10/16/18 at 1600.
[2018-10-02] MEDS: metroNIDAZOLE 500 MG TABLET PO SCH ×3 (10:09→21:32)
[2018-10-02] MEDS: amLODIPine 5 MG TABLET PO SCH (10:09)
[2018-10-02] MEDS: Insulin LISPRO 300 UNITS/3 ML VIAL SQ SCH ×7 (10:09→21:33)
[2018-10-02] MEDS: cloNIDine HCl 0.1 MG TABLET PO SCH ×3 (10:09→21:32)
[2018-10-02] MEDS: Insulin DETEMIR 100 UNIT/ML X5UNITS SQ SCH ×2 (10:09→21:33)
[2018-10-02] MEDS: FLUoxetine HCl 10 MG CAPSULE PO SCH (10:09)
[2018-10-02] MEDS ORDERED: Acetaminophen 325 MG TABLET PO PRN (10:58)
[2018-10-02] MEDS: cefTRIAXone 2,000 MG in Water for inj. (sterile) 20 ML IVP SCH (12:00)
--- NOTE | 2018-10-02 12:47 | Internal Med Progress Note ---
Hospitalist Progress Note - Encounter Date of Encounter: 10/02/18 Time of Encounter: 10:00 - Subjective Interval History: Pt expressed her desire to avoid surgery and to try IV abx instead to salvage her R 2nd toe. No fever/chills or N/V. - Exam Vitals: Temp Pulse Resp BP Pulse Ox 97.9 F 63 16 150/72 95 10/02/18 11:29 10/02/18 11:29 10/02/18 11:29 10/02/18 11:29 10/02/18 11:29 Exam: General: Patient is alert, no acute distress, oriented x 3, morbidly obese Respiratory: Good respiratory effort. Normal breath sounds. No wheezing or crackles. Cardiovascular: Regular rate and rhythm. s1 and s2 normal No clicks, rubs, gallops, or murmurs. Abdomen: Abdomen is soft, nontender. Bowel sounds are present Musculoskeletal: Spontaneously moving all extremities Skin: right foot dressing c/d/i with receding erythema over the right smith Neuro: Alert oriented x 3 normal cranial nerves, no focal deficits Psych: Patient's affect is normal - Assessment and Plan (1) Sepsis Current Visit: Yes Status: Acute Assessment and Plan: due to R LE cellulitis/OM. MRI +ve for R 2nd distal phalanx OM Blood cultures grew Streptococcus dysgalactiae equisimilis in 1 out of 2 sets. Discussed with ID, likely a contaminant repeat blood culture -> if negative at 24 hours, will place midline in anticipation for 6 weeks of IV Abx WBC normal x 3, afebrile > 48 hours. appreciate ID input, abx switched to Rocephin/flagyl pt declined right second toe distal phalangectomy. Wound care per podiatry. (2) Osteomyelitis Current Visit: Yes Status: Acute Assessment and Plan: as above (3) Cellulitis of right lower extremity Current Visit: Yes Status: Acute Assessment and Plan: improving on broad spectrum abx, continue (4) STEPHANIA (acute kidney injury) Current Visit: Yes Status: Acute Assessment and Plan: suspect a component of CKD Cr 1.6 -> 1.35 US retroperitoneum unremarkable appreciate nephrology input, for follow up in 4-8 weeks renally dosed abx (5) Morbid obesity with BMI of 50.0-59.9, adult Current Visit: Yes Status: Chronic Assessment and Plan: lifestyle modifications emphasized (6) Diabetes mellitus Current Visit: Yes Status: Chronic Assessment and Plan: continue levemir 15U BID with high dose sliding scale with prandial lispro (7) HTN (hypertension) Current Visit: Yes Status: Chronic Assessment and Plan: continue coreg. Norvasc uptitrated to 10mg yesterday will add clonidine as well. Plan to switch to NATASHA-i if Cr is stable DVT Prophylaxis: SQ heparin - Time Spent with Patient Total time spent is greater than 50% in coordination of care (as documented) at patient's floor/unit and/or counseling patient: Greater than 35 minutes Plan of Care Discussed with: patient (discussed with ID) Internal Medicine: Result - Labs CBC & Chem 7: 10/02/18 05:51 10/02/18 05:51 Labs: Short CBC 10/02/18 Range/Units 05:51 WBC 6.0 (4.3-11.1) K/mcL Hgb 11.2 L (11.5-15.4) g/dL Hct 35.1 L (35.3-44.9) % Plt Count 237 (140-400) K/mcL Neutrophils # 3.3 (1.6-8.9) K/mcL BMP 10/02/18 05:51 Sodium 144 Potassium 4.4 Chloride 106 Carbon Dioxide 24 BUN 27 H Creatinine 1.35 H Glucose 147 H Calcium 9.1 Consult Discharge Plan - Plan Referrals: Luz Ruelas DO [Resident] - 10/09/18 1:00 pm (please keep this appointment, this is your hospital follow up and this will establish you with this doctor for future visits) Venus Aguilar, [employer] [Advanced Practice Nurse] - 10/16/18 4:00 pm NONE,PCP [Primary Care Provider] - Prescriptions: cefTRIAXone [Rocephin] 2,000 mg IVPB DAILY #42 vial (1) Sepsis Qualifiers: Sepsis type: Streptococcus, other Qualified Code(s): A40.8 - Other streptococcal sepsis (2) Osteomyelitis Qualifiers: Osteomyelitis type: unspecified type Osteomyelitis location: foot Laterality: right Qualified Code(s): M86.9 - Osteomyelitis, unspecified (6) Diabetes mellitus Qualifiers: Diabetes mellitus type: type 2 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
[2018-10-02 13:59] LABS: ANA IgG by ELISA NONE DETECTED (None Detected)
[2018-10-02] MEDS ORDERED: Ropivicaine 0.25% 20 ml Syringe INTRAART ONE (17:30)
[2018-10-03 03:09] LABS: Alpha 2 Globulin (PEP) 1.33 g/dL (0.48-1.05); Beta Globulin (PEP) 1.01 g/dL (0.48-1.10)
[2018-10-03] MEDS: *HR* Heparin 5,000 UNIT/ML VIAL SQ SCH (04:51)
[2018-10-03 05:53] LABS: Calcium 9.2 mg/dL (8.6-10.3); Potassium 4.7 mEq/L (3.5-5.1)
[2018-10-03] MEDS: metroNIDAZOLE 500 MG TABLET PO SCH ×2 (08:47→16:18)
[2018-10-03] MEDS: cefTRIAXone 2,000 MG in Water for inj. (sterile) 20 ML IVP SCH (08:47)
[2018-10-03] MEDS: amLODIPine 5 MG TABLET PO SCH (08:47)
[2018-10-03] MEDS: cloNIDine HCl 0.1 MG TABLET PO SCH ×2 (08:47→16:18)
[2018-10-03] MEDS: FLUoxetine HCl 10 MG CAPSULE PO SCH (08:47)
[2018-10-03] MEDS: Insulin DETEMIR 100 UNIT/ML X5UNITS SQ SCH (08:57)
--- NOTE | 2018-10-03 08:57 | Infectious Disease Progress No ---
ID Progress Note Date of Encounter: 10/03/18 Time of Encounter: 08:55 - Subjective Subjective: Patient seen and examined sitting up in the bedside chair. No acute events noted overnight. Patient states overall she feels well today. Denies fevers, chills, or rigors. Denies chest pain, shortness of breath, or cough. Denies nausea, vomiting, diarrhea, or constipation. Denies abdominal pain or urinary complaints. States her last bowel movement was yesterday. Denies oral thrush or skin rashes. States appetite is good. Denies pain in her extremities, but states her RLE is itching. - Objective CBC & Chem 7: 10/02/18 05:51 10/03/18 04:49 - Exam Vitals: Temp Pulse Resp BP Pulse Ox 97.5 F L 61 20 168/92 97 10/03/18 07:23 10/03/18 07:23 10/03/18 07:23 10/03/18 07:23 10/03/18 07:23 Exam: Head: Atraumatic, normal inspection, normocephalic. Eye: EOMI, PERRLA, no scleral icterus noted. ENT: Mucous membranes moist. No odontogenic infection noted. Neck: Normal inspection, no meningismus. Respiratory: Clear to auscultation. No rales, respiratory distress, rhonchi, or wheezes noted. Cardiovascular: Regular rate and rhythm, S1 and S2 audible. No murmurs, rubs, or gallops. GI: Soft, obese, normal bowel sounds. Nontender. Extremities: Venous stasis dermatitis noticed the bilateral lower extremities. Right foot dressing clean, dry, and intact. Erythema noted to the right lower extremity that has receded from previous skin markings. Warm to touch and mildly tender, but improved from previous evaluations. Neurological: Alert, oriented 3, no focal deficits. Psychiatric: normal affect, normal mood. Skin: Dry, intact, warm. Normal color. No rashes. - Assessment and Plan (1) Sepsis Current Visit: Yes Status: Acute The patient had 2 sepsis criteria with acute kidney injury on admission. Likely secondary to right foot cellulitis and osteomyelitis. Improved. Leukocytosis resolved. Afebrile overnight. Blood cultures on 09/28/18 are +1 out of 2 sets for S. dysgalactiae. Repeat blood cultures drawn 10/02/18 are NGTD x 2 sets. Qualifiers: Sepsis type: sepsis due to unspecified organism Qualified Code(s): A41.9 - Sepsis, unspecified organism SNOMED Code(s): 74920333 (2) Bacteremia Current Visit: Yes Status: Acute Causative organism: S. dysgalactiae. Blood cultures on 09/28/18 are +1 out of 2 sets for S. dysgalactiae. Repeat blood cultures drawn 10/02/18 are NGTD x 2 sets. Likely secondary to right foot cellulitis and osteomyelitis. Currently on Rocephin. SNOMED Code(s): 3948918 (3) Osteomyelitis Current Visit: Yes Status: Acute Location: Right foot secod toe distal phalanx. Causative organism: Unclear, but likely S. dysgalactiae based on blood culture results. CT of the right foot showed possible osteoporosis of the distal second toe phalanx and cellulitis versus sterile edema. MRI of the right foot showed osteomyelitis of the second distal phalanx and cellulitis. ESR 64, CRP 149. Wound cultures have not been obtained. Podiatry consulted. Patient declined operative debridement/amputation. Currently on Rocephin and Flagyl. Qualifiers: Osteomyelitis type: other Osteomyelitis location: foot Laterality: right Qualified Code(s): M86.8X7 - Other osteomyelitis, ankle and foot SNOMED Code(s): 10740612 (4) Cellulitis of right lower extremity Current Visit: Yes Status: Acute Location: RLE. Likely secondary to diabetic foot ulcer. Causative organism: Unclear, but likely S. dysgalactiae. Improved. CT and MRI negative for abscess. Currently on Rocephin and Flagyl. SNOMED Code(s): 314802853 (5) STEPHANIA (acute kidney injury) Current Visit: Yes Status: Acute STEPHANIA on possible CKD. Serum creatinine improving. Nephrology consulted and signed off. Dose-adjust medications and avoid nephrotoxins as able. SNOMED Code(s): 49316795, 27561164 (6) Gastroenteritis Current Visit: Yes Status: Resolved Resolved. SNOMED Code(s): 47519083 (7) Diabetes mellitus Current Visit: Yes Status: Chronic Uncontrolled. Hemoglobin A1c 9.7%. Recommend aggressive glucose monitoring and control troponin wound healing and prevent reinfection. Management per the primary team. Qualifiers: Diabetes mellitus type: type 2 Diabetes mellitus residential insulin use: with long term care administrator use Diabetes mellitus complication status: with hyperglycemia Qualified Code(s): E11.65 - Type 2 diabetes mellitus with hyperglycemia; Z79.4 - emt intermediate (current) use of insulin SNOMED Code(s): 19401293 (8) Morbid obesity with BMI of 50.0-59.9, adult Current Visit: Yes Status: Chronic SNOMED Code(s): 707120958, 92981586017429 (9) HTN (hypertension) Current Visit: Yes Status: Chronic Qualifiers: Hypertension type: essential hypertension Qualified Code(s): I10 - Essential (primary) hypertension SNOMED Code(s): 88037489 - Recommendations Recommendations: Await repeat blood cultures. Wound care per the podiatry team. Continue Rocephin 2 g IV daily. Continue Flagyl 500 mg by mouth 3 times a day. Duration of treatment depends on the clinical picture, but likely 6 weeks. Monitor renal function dose just antibiotics. animal services officer to assist with discharge planning. If blood cultures remain negative this afternoon, can place midline for OPAT therapy. Will need weekly CBC, BUN/Cr, ESR, CRP. Will need weekly IV care per protocol. Follow up with ID 10/16/18 at 1600. Consult Discharge Plan - Plan Referrals: Luz Ruelas DO [Resident] - 10/09/18 1:00 pm (please keep this appointment, this is your hospital follow up and this will establish you with this doctor for future visits) Venus Aguilar [employer]ICULT[employer]ISSION AGENT [Advanced Practice Nurse] - 10/16/18 4:00 pm NONE,PCP [Primary Care Provider] - Prescriptions: cefTRIAXone [Rocephin] 2,000 mg IVPB DAILY #42 vial
--- NOTE | 2018-10-03 10:27 | Discharge Summary ---
- NOTES TO OUTPATIENT PROVIDER Notes to Outpatient Provider: Follow with podiatry and ID as outpatient. For 6 weeks of IV abx. Follow up with Nephrology as well in 4-8 weeks with BMP 1 week prior to the appt. Orders not resulted at time of discharge: Pending orders 09/28/18 13:25 Culture,Blood [BC] Stat 09/30/18 11:00 MONTY IgG LAURA rflx IFA Routine MPO/PR3 (ANCA) Antibodies Routine Protein Electrophoresis Routine 10/02/18 08:39 Culture,Blood [BC] Routine Date of Encounter: 10/03/18 Time of Encounter: 07:15 - Discharge Diagnosis (1) Sepsis Priority: Primary Status: Acute Qualifiers: Sepsis type: Streptococcus, other Qualified Code(s): A40.8 - Other streptococcal sepsis (2) Osteomyelitis Priority: Secondary Status: Acute Qualifiers: Osteomyelitis type: unspecified type Osteomyelitis location: foot Laterality: right Qualified Code(s): M86.9 - Osteomyelitis, unspecified (3) Cellulitis of right lower extremity Priority: Secondary Status: Acute (4) STEPHANIA (acute kidney injury) Priority: Secondary Status: Acute (5) Morbid obesity with BMI of 50.0-59.9, adult Priority: Secondary Status: Chronic (6) Diabetes mellitus Priority: Secondary Status: Chronic Qualifiers: Diabetes mellitus type: type 2 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 De Souza is a 63 year old female with history of diabetes, hypertension, ?CKD, who was admitted for sepsis secondary to right LE cellulitis/OM. MRI +ve for R 2nd distal phalanx OM. Was offered distal phalangectomy by Podiatry but declined despite understanding the risk of worsening infection, limb loss, and potential . 1 set of initial blood culture grew Strep dysgalactiae equisimilis and subsequent blood cultures were negative until the day of discharge. Managed in consultation with ID and pt will be discharged on 6 weeks of IV Abdon/PO Flagyl with close ID/podiatry follow up as outpatient. Her Cr was noted to be elevated at 1.46 but it was stable and was likely to represent CKD over STEPHANIA. Will follow up with Nephrology outpatient in 4-8 weeks with BMP 1 week prior to the appointment. Discharge discussed with: patient, nurse, social work, case management, recruitment consultant - Time Spent with Patient Total time spent providing and/or coordinating discharge services: 37 mins - Discharge Medications Prescriptions: New cefTRIAXone [Rocephin] 2,000 mg IVPB DAILY #42 vial metroNIDAZOLE [Flagyl] 500 mg PO TID 40 Days #120 tablet amLODIPine [Norvasc] 10 mg PO DAILY #60 tablet Continued Carvedilol [Coreg] 6.25 mg PO BID Simvastatin [Zocor] 20 mg PO HS Quinapril HCl 40 mg PO DAILY FLUoxetine HCl [Fluoxetine HCl] 10 mg PO QAM Insulin ASPART [Novolog Flexpen] 12 - 16 unit SQ TIDAC Insulin Glargine,Hum.rec.anlog [Lantus Solostar] 55 unit SQ QAM Insulin Glargine,Hum.rec.anlog [Lantus Solostar] 40 unit SQ HS Metformin HCl [Glucophage] 1,000 mg PO BID Home Medications: Carvedilol [Coreg] 6.25 mg PO BID 09/28/18 [History] FLUoxetine HCl [Fluoxetine HCl] 10 mg PO QAM 09/28/18 [History] Quinapril HCl 40 mg PO DAILY 09/28/18 [History] Simvastatin [Zocor] 20 mg PO HS 09/28/18 [History] Insulin ASPART [Novolog Flexpen] 12 - 16 unit SQ TIDAC 09/29/18 [History] Insulin Glargine,Hum.rec.anlog [Lantus Solostar] 40 unit SQ HS 09/29/18 [History] Insulin Glargine,Hum.rec.anlog [Lantus Solostar] 55 unit SQ QAM 09/29/18 [History] Metformin HCl [Glucophage] 1,000 mg PO BID 09/29/18 [History] cefTRIAXone [Rocephin] 2,000 mg IVPB DAILY #42 vial 10/02/18 [Rx] amLODIPine [Norvasc] 10 mg PO DAILY #60 tablet 10/03/18 [Rx] metroNIDAZOLE [Flagyl] 500 mg PO TID 40 Days #120 tablet 10/03/18 [Rx] Allergies/Adverse Reactions: Allergy/AdvReac Type Severity Reaction Status Date / Time codeine AdvReac Hives Verified 09/29/18 21:15 Date of admission: 09/29/18 14:23 Primary care physician: PCP NONE Consults: 09/28/18 17:00 Consult to Podiatry [CONS] Stat Consulting Provider: Podiatry [facility] Reason for Consult: RLE cellulitis, possible osteomyelitis right second toe. Call Completed: Yes 09/30/18 08:17 Consult to Nephrology [CONS] Routine Consulting Provider: Kidney Thelma/CATHRYN/ANT/HUMBERTO Reason for Consult: Worsening STEPHANIA Time Notified: 08:17 Call Completed: Yes 10/01/18 11:26 Consult to Infectious Diseases [CONS] Routine Consulting Provider: Infectious [facility] Reason for Consult: R 2nd toe OM Call Completed: Yes 10/03/18 10:01 Consult to Invasive Line Access Team [CONS] Routine Reason for Consult: Limited vascular access with need for outpt. antibiotics. Line Type: Midline - Constitutional Vitals: Temp Pulse Resp BP Pulse Ox 97.5 F L 61 20 168/92 97 10/03/18 07:23 10/03/18 07:23 10/03/18 07:23 10/03/18 07:23 10/03/18 07:23 Exam: General: Patient is alert, no acute distress, oriented x 3, morbidly obese Respiratory: Good respiratory effort. Normal breath sounds. No wheezing or crackles. Cardiovascular: Regular rate and rhythm. s1 and s2 normal No clicks, rubs, gallops, or murmurs. Abdomen: Abdomen is soft, nontender. Bowel sounds are present Musculoskeletal: Spontaneously moving all extremities Skin: right foot dressing c/d/i with receding erythema over the right smith Neuro: Alert oriented x 3 normal cranial nerves, no focal deficits Psych: Patient's affect is normal - Patient Status Disposition: Home Health Service Condition: Undetermined Overall status at discharge: patient is progressing back to baseline - Discharge Instructions Instructions: Cellulitis (DC), Sepsis (DC), Diabetes Mellitus Type 2 in Adults (DC), Chronic Hypertension (DC) Follow Up With: Luz Ruelas DO [Resident] - 10/09/18 1:00 pm (please keep this appointment, this is your hospital follow up and this will establish you with this doctor for future visits) Venus Aguilar CNP [Advanced Practice Nurse] - 10/16/18 4:00 pm NONE,PCP [Primary Care Provider] - Luis Fernando Moraes MD [Partnered Physician] - Sheldon Gonzalez [Non-Partnered Physician] - - Diet and Activity Activity: as per physical therapy Diet: diabetic diet
--- NOTE | 2018-10-03 10:35 | Physician Discharge Referral ---
Home Health/Hosp Referral Info Transfer to: Home Health Provider in Charge Post Discharge: PCP - Diagnosis (1) Sepsis Priority: Primary Status: Acute (2) Osteomyelitis Priority: Secondary Status: Acute (3) Cellulitis of right lower extremity Priority: Secondary Status: Acute (4) STEPHANIA (acute kidney injury) Priority: Secondary Status: Acute (5) Morbid obesity with BMI of 50.0-59.9, adult Priority: Secondary Status: Chronic (6) Diabetes mellitus Priority: Secondary Status: Chronic (7) HTN (hypertension) Priority: Secondary Status: Chronic - Respiratory Orders Smoking Cessation: Smoking cessation has been advised. For more information, call the [place] Tobacco Quit Line at 1-483-DTON-NOW. - Diet/Nutrition Diet/Nutrition Orders: No Concentrated Sweets - Services Needed Following services are medically necessary services: Nursing, Home Health Aide, Physical Therapy, Occupational Therapy, Home Infusion - Transfer Medications Prescriptions: metroNIDAZOLE [Flagyl] 500 mg PO TID 40 Days #120 tablet amLODIPine [Norvasc] 10 mg PO DAILY #60 tablet cefTRIAXone [Rocephin] 2,000 mg IVPB DAILY #42 vial Home Medications: Carvedilol [Coreg] 6.25 mg PO BID 09/28/18 [History] FLUoxetine HCl [Fluoxetine HCl] 10 mg PO QAM 09/28/18 [History] Quinapril HCl 40 mg PO DAILY 09/28/18 [History] Simvastatin [Zocor] 20 mg PO HS 09/28/18 [History] Insulin ASPART [Novolog Flexpen] 12 - 16 unit SQ TIDAC 09/29/18 [History] Insulin Glargine,Hum.rec.anlog [Lantus Solostar] 40 unit SQ 09/29/18 [History] Insulin Glargine,Hum.rec.anlog [Lantus Solostar] 55 unit SQ QAM 09/29/18 [History] Metformin HCl [Glucophage] 1,000 mg PO BID 09/29/18 [History] cefTRIAXone [Rocephin] 2,000 mg IVPB DAILY #42 vial 10/02/18 [Rx] amLODIPine [Norvasc] 10 mg PO DAILY #60 tablet 10/03/18 [Rx] metroNIDAZOLE [Flagyl] 500 mg PO TID 40 Days #120 tablet 10/03/18 [Rx] Allergies/Adverse Reactions: Allergy/AdvReac Type Severity Reaction Status Date / Time codeine AdvReac Hives Verified 09/29/18 21:15 Certification: Further, I certify that my clinical findings support that this patient is homebound (i.e. absences from home require considerable and taxing effort and are for medical reasons or sabianism services or infrequently or short duration when for other reasons) because: Homebound Reason: Patient requires assistance of a person or device to safely leave home Attestation: My signature below is to certify that this patient is under my care and that I, or nurse practitioner, or a physician's assistant finance manager working with me, has a [id number] encounter with this patient.
[2018-10-03 11:38] VITALS: BP 138/75
[2018-10-03] MEDS ORDERED: Insulin LISPRO 300 UNITS/3 ML VIAL SQ SCH (12:00)
[2018-10-03] MEDS: Insulin LISPRO 300 UNITS/3 ML VIAL SQ SCH ×2 (12:11)
[2018-10-03 13:11] LABS: Myeloperoxidase Ab 0 AU/mL (0-19); Serine Protease-3 Antibody 0 AU/mL (0-19)
[2018-10-03 13:24] LABS: IFE Reflexed NOT DONE
== END 2018-10-03 16:06 | disposition home health service (06) | DRG 720 ==
LOC: EMEROOARM 12:13 → 2ANU 12:13 → SUATTDRO 17:46 → 2ANU 18:08 → SUATTDRO 09-29 14:23
PROVIDERS: ADMIT Internal Medicine; ATTEND Internal Medicine

== ENCOUNTER 2018-12-30 16:12 | Inpatient (IN) ==
[2018-12-30] MEDS ORDERED: Ondansetron 4 MG/2 ML VIAL IVP ONE (16:31)
[2018-12-30] MEDS ORDERED: 0.9 % Sodium Chloride 1,000 ML IVC ONE ×2 (16:31→18:11)
[2018-12-30] MEDS ORDERED: Isovue-370 500 ML BOTTLE IVP ONE (16:33)
[2018-12-30] MEDS ORDERED: Piperacillin/Tazobactam 3.375 GM in 0.9 % Sodium Chloride Mini Bag 100 ML IVPB ONE (16:59)
[2018-12-30 18:07] LABS: Albumin 3.5 g/dL (3.5-5.7); Albumin/Globulin Ratio 1.1 (1.1-2.2); Bilirubin,Total 0.3 mg/dL (0.3-1.0); Calcium 8.9 mg/dL (8.6-10.3); Globulin 3.2 g/dL (2.4-3.5); Potassium 3.8 mEq/L (3.5-5.1); Total Protein 6.7 g/dL (6.4-8.9)
[2018-12-30 18:14] LABS: Bilirubin,Urine Negative (Negative); Blood,Urine Trace (Negative); Clarity,Urine Cloudy (Clear); Color,Urine Yellow (Yellow); Glucose,Urine (UA) Normal (Normal); Ketones,Urine Negative (Negative); Leukocyte Esterase,Urine Negative (Negative); Nitrite,Urine Negative (Negative); Protein,Urine >=300 mg/dL (Neg-Trace); Specific Gravity,Urine 1.018 (1.010-1.025); Urobilinogen,Urine Normal (Normal)
[2018-12-30 18:23] LABS: Bacteria,Urine Many per hpf (None-Few); Hyaline Casts,Urine None Seen per lpf (None-Few); RBC,Urine 0-3 per hpf (0-3); Squamous Epithelial Cell,Urine Moderate per lpf (None-Few); WBC,Urine 15-30 per hpf (0-3)
[2018-12-30 19:31] LABS: Basophils % 0.2 %; Eosinophils % 0.1 %; Hematocrit 36.3 % (35.3-44.9); Hemoglobin 11.5 g/dL (11.5-15.4); Immature Granulocytes % 1.3 % (0-4); Lymphocytes # 1.6 K/mcL (0.6-4.6); Lymphocytes % 8.5 %; Mean Corpuscular HGB Conc 31.7 g/dL (31.6-35.5); Mean Corpuscular Hemoglobin 32.5 pg (28.0-33.3); Mean Corpuscular Volume 102.5 fL (83.0-100.0); Mean Platelet Volume 10.7 fL (9.4-12.4); Monocytes # 0.9 K/mcL (0.0-1.3); Neutrophils # 15.8 K/mcL (1.6-8.9); Platelet Count 232 K/mcL (140-400); Red Blood Count 3.54 M/mcL (3.82-4.97); Red Cell Distribution Width 12.8 % (11.5-14.5); Segmented Neutrophils % 84.9 %; White Blood Count 18.6 K/mcL (4.3-11.1)
[2018-12-31] MEDS ORDERED: Naloxone 0.4 MG/ML INJ IVP PRN (02:23)
[2018-12-31] MEDS ORDERED: 0.9 % Sodium Chloride 1,000 ML IVC SCH (02:30)
[2018-12-31] MEDS ORDERED: Ondansetron 4 MG/2 ML VIAL IVP PRN (02:43)
[2018-12-31] MEDS ORDERED: D5% in Water 1,000 ML IVC PRN (02:43)
[2018-12-31] MEDS ORDERED: Dextrose Gel 15 GM/37.5 ML TUBE PO PRN ×2 (02:43)
[2018-12-31] MEDS ORDERED: *HR* Dextrose 50 % in Water (Syg) 50 ML SYRINGE IVP PRN (02:43)
[2018-12-31] MEDS: Acetaminophen 325 MG TABLET PO PRN (03:42)
[2018-12-31] MEDS: *HR* Heparin 5,000 UNIT/ML VIAL SQ SCH ×2 (05:01→17:43)
[2018-12-31 05:04] LABS: Hematocrit 31.3 % (35.3-44.9); Mean Corpuscular HGB Conc 31.6 g/dL (31.6-35.5); Mean Corpuscular Hemoglobin 32.1 pg (28.0-33.3); Mean Corpuscular Volume 101.6 fL (83.0-100.0); Mean Platelet Volume 11.3 fL (9.4-12.4); Platelet Count 234 K/mcL (140-400); Red Blood Count 3.08 M/mcL (3.82-4.97); Red Cell Distribution Width 13.2 % (11.5-14.5)
[2018-12-31 05:06] LABS: Hemoglobin 9.9 g/dL (11.5-15.4)
[2018-12-31 05:18] LABS: Potassium 3.8 mEq/L (3.5-5.1)
[2018-12-31] MEDS: Piperacillin/Tazobactam 3.375 GM in 0.9 % Sodium Chloride Mini Bag 100 ML IVPB SCH ×2 (08:49→17:41)
[2018-12-31] MEDS: Insulin LISPRO 300 UNITS/3 ML VIAL SQ SCH ×4 (08:51→21:48)
[2019-01-01] MEDS: Piperacillin/Tazobactam 3.375 GM in 0.9 % Sodium Chloride Mini Bag 100 ML IVPB SCH ×4 (01:27→23:07)
[2019-01-01] MEDS: Acetaminophen 325 MG TABLET PO PRN ×2 (04:24→21:58)
[2019-01-01 05:02] LABS: Basophils % 0.3 %; Eosinophils # 0.3 K/mcL (0.0-0.6); Eosinophils % 2.3 %; Hematocrit 31.8 % (35.3-44.9); Hemoglobin 9.9 g/dL (11.5-15.4); Immature Granulocytes % 0.6 % (0-4); Lymphocytes % 16.7 %; Mean Corpuscular HGB Conc 31.1 g/dL (31.6-35.5); Mean Corpuscular Hemoglobin 32.5 pg (28.0-33.3); Mean Corpuscular Volume 104.3 fL (83.0-100.0); Mean Platelet Volume 11.2 fL (9.4-12.4); Monocytes # 0.6 K/mcL (0.0-1.3); Monocytes % 5.1 %; Neutrophils # 8.9 K/mcL (1.6-8.9); Platelet Count 235 K/mcL (140-400); Red Blood Count 3.05 M/mcL (3.82-4.97); Red Cell Distribution Width 13.2 % (11.5-14.5); White Blood Count 11.8 K/mcL (4.3-11.1)
[2019-01-01] MEDS: *HR* Heparin 5,000 UNIT/ML VIAL SQ SCH ×2 (06:36→16:49)
[2019-01-01] MEDS: Insulin LISPRO 300 UNITS/3 ML VIAL SQ SCH ×5 (07:53→20:16)
[2019-01-01] MEDS ORDERED: QUINAPRIL HCL 40 MG PO SCH (09:00)
[2019-01-01] MEDS: Cyanocobalamin (B-12) 1,000 MCG TABLET PO SCH (10:37)
[2019-01-01] MEDS: Aspirin 81 MG TAB.CHEW PO SCH (10:37)
[2019-01-01] MEDS: FLUoxetine HCl 10 MG CAPSULE PO SCH (10:37)
[2019-01-01] MEDS: amLODIPine 5 MG TABLET PO SCH (10:38)
[2019-01-01] MEDS: Insulin DETEMIR 100 UNIT/ML X5UNITS SQ SCH (10:39)
[2019-01-01] MEDS ORDERED: Insulin DETEMIR 100 UNIT/ML X5UNITS SQ SCH (21:00)
[2019-01-02 02:27] LABS: Basophils % 0.2 %; Eosinophils # 0.3 K/mcL (0.0-0.6); Eosinophils % 2.8 %; Hemoglobin 9.6 g/dL (11.5-15.4); Immature Granulocytes % 0.6 % (0-4); Lymphocytes # 2.4 K/mcL (0.6-4.6); Lymphocytes % 26.1 %; Mean Corpuscular HGB Conc 33.1 g/dL (31.6-35.5); Mean Corpuscular Hemoglobin 32.9 pg (28.0-33.3); Mean Corpuscular Volume 99.3 fL (83.0-100.0); Mean Platelet Volume 11.6 fL (9.4-12.4); Monocytes # 0.6 K/mcL (0.0-1.3); Monocytes % 6.1 %; Neutrophils # 5.9 K/mcL (1.6-8.9); Platelet Count 247 K/mcL (140-400); Red Blood Count 2.92 M/mcL (3.82-4.97); Red Cell Distribution Width 12.9 % (11.5-14.5); Segmented Neutrophils % 64.2 %; White Blood Count 9.3 K/mcL (4.3-11.1)
[2019-01-02 02:44] LABS: Potassium 3.6 mEq/L (3.5-5.1)
[2019-01-02] MEDS: *HR* Heparin 5,000 UNIT/ML VIAL SQ SCH ×2 (05:28→17:09)
[2019-01-02] MEDS: amLODIPine 5 MG TABLET PO SCH (08:06)
[2019-01-02] MEDS: Aspirin 81 MG TAB.CHEW PO SCH (08:06)
[2019-01-02] MEDS: Piperacillin/Tazobactam 3.375 GM in 0.9 % Sodium Chloride Mini Bag 100 ML IVPB SCH ×2 (08:07→17:17)
[2019-01-02] MEDS: Insulin LISPRO 300 UNITS/3 ML VIAL SQ SCH ×4 (08:07→21:59)
[2019-01-02] MEDS: FLUoxetine HCl 10 MG CAPSULE PO SCH (08:07)
[2019-01-02] MEDS: Cyanocobalamin (B-12) 1,000 MCG TABLET PO SCH (08:07)
[2019-01-02] MEDS: Insulin DETEMIR 100 UNIT/ML X5UNITS SQ SCH (08:09)
[2019-01-02] MEDS ORDERED: Aminoglycoside Consult 1 EACH MC ONE (12:14)
[2019-01-02] MEDS ORDERED: levoFLOXacin 750 MG TABLET PO SCH (16:30)
[2019-01-02] MEDS: Acetaminophen 325 MG TABLET PO PRN (21:58)
[2019-01-02] MEDS: Doxycycline 100 MG CAPSULE PO SCH (21:58)
[2019-01-03 01:12] LABS: Basophils % 0.5 %; Eosinophils # 0.2 K/mcL (0.0-0.6); Eosinophils % 2.9 %; Hematocrit 28.1 % (35.3-44.9); Hemoglobin 9.3 g/dL (11.5-15.4); Immature Granulocytes % 1.6 % (0-4); Lymphocytes # 2.1 K/mcL (0.6-4.6); Lymphocytes % 27.8 %; Mean Corpuscular HGB Conc 33.1 g/dL (31.6-35.5); Mean Corpuscular Hemoglobin 32.6 pg (28.0-33.3); Mean Corpuscular Volume 98.6 fL (83.0-100.0); Mean Platelet Volume 11.1 fL (9.4-12.4); Monocytes # 0.6 K/mcL (0.0-1.3); Monocytes % 7.3 %; Neutrophils # 4.5 K/mcL (1.6-8.9); Platelet Count 252 K/mcL (140-400); Red Blood Count 2.85 M/mcL (3.82-4.97); Red Cell Distribution Width 12.8 % (11.5-14.5); Segmented Neutrophils % 59.9 %; White Blood Count 7.5 K/mcL (4.3-11.1)
[2019-01-03 01:30] LABS: Calcium 8.1 mg/dL (8.6-10.3); Potassium 4.3 mEq/L (3.5-5.1)
[2019-01-03] MEDS: *HR* Heparin 5,000 UNIT/ML VIAL SQ SCH (05:53)
[2019-01-03 06:36] VITALS: BP 173/87
[2019-01-03] MEDS: amLODIPine 5 MG TABLET PO SCH (09:09)
[2019-01-03] MEDS: Insulin DETEMIR 100 UNIT/ML X5UNITS SQ SCH (09:09)
[2019-01-03] MEDS: Doxycycline 100 MG CAPSULE PO SCH (09:09)
[2019-01-03] MEDS: Aspirin 81 MG TAB.CHEW PO SCH (09:09)
[2019-01-03] MEDS: Cyanocobalamin (B-12) 1,000 MCG TABLET PO SCH (09:09)
[2019-01-03] MEDS: FLUoxetine HCl 10 MG CAPSULE PO SCH (09:09)
[2019-01-03] MEDS: Insulin LISPRO 300 UNITS/3 ML VIAL SQ SCH (09:10)
== END 2019-01-03 12:15 | disposition home or self-care (01) | DRG 720 ==
LOC: EMEROOARM 16:12 → 3BNU 16:12
PROVIDERS: ADMIT Family Medicine; ATTEND Family Medicine